=== PATIENT | male | born 1990 | race Caucasian/White ===

== ENCOUNTER 2022-03-17 12:11 | Inpatient (IN) | payer OTHER, SELFPAY ==
[2022-03-17] VITALS (7 sets, daily range): BP systolic 124–174; BP diastolic 76–99; PULSE 91–111; RESP 18–29; TEMP 36.7–37; O2SAT 96–100; BMI 50.2; BMI 52.7
--- NOTE | 2022-03-17 | ECG_ITS ---
Test Reason : tachy Blood Pressure : / mmHG Vent. Rate : 105 BPM Atrial Rate : 105 BPM P-R Int : 176 ms QRS Dur : 092 ms QT Int : 302 ms P-R-T Axes : 069 091 026 degrees QTc Int : 399 ms Sinus tachycardia Possible Left atrial enlargement Rightward axis Nonspecific T wave abnormality Abnormal ECG No previous ECGs available Referred By: Fatoumata Stewart Electronically Signed By:ANDREW LINDSAY MD
--- NOTE | ~2022-03-17 | XR_ITS ---
EXAMINATION: XR CHEST CLINICAL INFORMATION: Dyspnea COMPARISON: None TECHNIQUE: Frontal view of the chest was obtained. FINDINGS: The cardiac silhouette is enlarged. Hilar and mediastinal contours are normal. The lungs are clear. There is no pleural effusion or pneumothorax. Bony structures are unremarkable. XR/XR chest 1V IMPRESSION: Enlarged cardiac silhouette.
--- NOTE | ~2022-03-17 | US_ITS ---
EXAMINATION: US VENOUS ULTRASOUND WITH DOPPLER LOWER EXTREMITY, LEFT CLINICAL INFORMATION: Left lower extremity redness and pain COMPARISON: None TECHNIQUE: Ultrasound of the deep veins is performed from the hip to the calf with compression sonography and color and pulse Doppler assessment. Spectral analysis with color-flow imaging is performed. FINDINGS: There is normal venous compression and respiratory variation and augmented flow. The visualized common femoral vein, superficial femoral vein, profunda femoral vein, popliteal vein, and the trifurcation region shows no evidence of deep venous thrombosis. Limited views of the peroneal veins secondary to body habitus. There is no significant popliteal fossa cyst. Multiple prominent groin lymph nodes are seen. If the patient's symptoms persist, followup ultrasound in 5 days 7 days might be of value to exclude proximal propagation from a non-visualized calf vein. US/US venous duplex LE IMPRESSION: No DVT demonstrated in the left lower extremity.
[2022-03-17 12:57] LABS: Hematocrit 44.2 % (42.0-52.0); Hemoglobin 13.9 g/dl (14.0-18.0); Mean Corpuscular HGB Conc 31.4 g/dl (31.0-36.0); Mean Corpuscular Hemoglobin 29.8 pg (27.0-33.0); Mean Corpuscular Volume 94.6 fL (80.0-98.0); Mean Platelet Volume 9.1 fL (9.4-12.4); Platelet Count 214 X10*3/uL (160-400); Red Blood Count 4.67 X10*6/uL (4.60-5.80); Red Cell Distribution Width 13.8 % (11.0-16.0); White Blood Count 12.5 X10*3/uL (4.8-10.8)
[2022-03-17 13:12] LABS: COVID-19 Test Negative (Negative); IDNOW Serial# 16C4AD1C
--- NOTE | 2022-03-17 13:15 | ED_ITS ---
HPI - General Adult General Chief complaint: Skin/Abscess/Foreign Body Stated complaint: r leg turning purple Time Seen by Provider: 03/17/22 13:12 Source: patient Mode of arrival: ambulatory Limitations: no limitations History of Present Illness HPI narrative: 31-year-old male with a past medical history of asthma and obesity who has not seen a primary care provider for some time, presents for left leg cellulitis that started yesterday. Patient states that he rolled his leg walking down stairs 5 days ago. He states that sometimes this happens to his left knee. States that yesterday he had a small 2 in x 2 in patch of redness on his left lower extremity, but today it is painful, warm, swollen, and much redder. Patient has had subjective fevers and has had hot and cold chills at home. Three weeks ago patient was out for 2 weeks for an ankle sprain on his right ankle. He went back to work last week. Patient has a family history of diabetes. Patient states he has been referred for sleep apnea evaluation, but has not been evaluated for that yet. Related Data Home Medications Medication Instructions Recorded Confirmed No Known Home Meds 03/17/22 03/17/22 Allergies Allergy/AdvReac Type Severity Reaction Status Date / Time acetaminophen [From VICODIN] Allergy Unknown HIVES Unverified 06/13/20 15:54 tramadol [TRAMADOL] Allergy Unknown HIVES Unverified 06/13/20 15:54 VOMITING From FLEXERIL Allergy Unknown HIVES Uncoded 06/13/20 15:54 From VICODIN Allergy Unknown HIVES Uncoded 06/13/20 15:54 IVORY SOAP Allergy Unknown Uncoded 06/13/20 15:54 Review of Systems Constitutional: Constitutional: Reports body ache(s), Reports chills, Denies fatigue, Denies fever(s), Denies malaise and Denies weakness Eyes: Eyes: Denies diplopia Cardiovascular: Cardiovascular: Denies chest pain, Denies syncope, Reports leg edema, Denies lightheadedness, Denies Loss of Consciousness, Denies palpitations and Denies dyspnea Respiratory: Respiratory: Denies chest congestion, Denies cough and Denies dyspnea Gastrointestinal: Gastrointestinal: Denies abdominal pain, Denies hematochezia, Denies constipation, Denies diarrhea, Denies nausea and Denies vomiting Genitourinary: Genitourinary: Reports no additional male genitourinary complaints Musculoskeletal: Musculoskeletal: Denies muscle weakness, Denies numbness, Reports radiating pain into limb and Denies tingling Integumentary/Breasts: Skin/Breast: Reports swelling, Reports erythema and Reports rash Neurologic: Denies confusion, Denies syncope, Denies numbness, Denies tingling and Denies weakness Psychiatric: Psychiatric: Denies anxiety, Denies confusion and Denies d epression Endocrine: Endocrine: Denies fatigue and Denies palpitations PMF Past Medical History Medical History Mild intermittent asthma Morbid obesity Family History Family History Other Diabetes Social History Social History Advance Directives: No Advance Directives Information Provided: Yes Physical Exam ED Vital Signs: Vital Signs - 24 hr 03/17/22 12:25 Temperature 98.6 F Pulse Rate 102 H Respiratory Rate 18 Blood Pressure 132/76 Pulse Oximetry 97 Oxygen Delivery Method Room Air BMI result Body Mass Index 50.2 Const General: No confusion Nutritional Appearance: well nourished Orientation/consciousness: No confusion Limitations: no limitations Eyes Conjunctivae: conjunctivae normal Pupils: Equal, round and reactive pupils present EOM: EOMs intact bilaterally Neck Neck: Yes full ROM, Yes no lymphadenopathy and Yes supple Resp Effort & Inspection: normal respiratory effort and able to speak in complete sentences Auscultation: clear to auscultation bilaterally, no crackles, no rales, no rhonchi and no wheezes Cardio Rate: regular rate Rhythm: regular rhythm Heart sounds: S1 normal heart sound present and S2 normal heart sound present GI Inspection: Yes normal to inspection Palpation (GI): Soft to palpation, nontender, no guarding and not rigid Percussion: Yes normal to percussion Auscultation: normal bowel sounds Skin Other: Swelling, redness, warmth, edema to left lower extremity Neuro General: No confusion Cranial nerves: Yes Equal, round and reactive pupils present Extrem Left lower extremity: full ROM, normal capillary refill, edema Details: pitting and 2+ and lower leg Details: erythema, tenderness, pitting edema Details: 2+ and warmth Location: of the proximal lower leg, of the mid lower leg and of the distal lower leg; no crepitus Psych Appearance: grossly normal Affect: normal affect Attitude: cooperative Thought process: Normal thought process present Course Course Course Narrative: 31-year-old male with past medical history of asthma and obesity, presents for red, swollen, painful left calf. Patient has dark red rash on left calf. States rash became suddenly worse today, and that it started yesterday. No trauma. Patient did sprain his right ankle 1 month ago, and may have had reduced ambulation due to this. On exam, patient has intact left lower extremity pulses, sensation, motor strength, and reflexes. Patient has red, swollen with +2 pitting edema, left calf. Left posterior calf is tender to palpate. Left posterior calf is warm Afebrile, mildly tachycardic at HR 102 patient has an elevated white blood cell count of 12.5, blood sugar 234. COVID negative. DVT study is negative. Patient is afebrile here, but states subjective fevers and chills at home Dr Kaur saw patient, and agrees he needs admission. Reevaluation(s) Reevaluation #1: FINDINGS: There is normal venous compression and respiratory variation and augmented flow. The visualized common femoral vein, superficial femoral vein, profunda femoral vein, popliteal vein, and the trifurcation region shows no evidence of deep venous thrombosis. Limited views of the peroneal veins secondary to body habitus. There is no significant popliteal fossa cyst. Multiple prominent groin lymph nodes are seen. If the patient's symptoms persist, followup ultrasound in 5 days 7 days might be of value to exclude proximal propagation from a non-visualized calf vein. US/US venous duplex LE LT IMPRESSION: No DVT demonstrated in the left lower extremity. Medical Decision Making Lab Data Result diagrams: 03/17/22 12:49 03/17/22 12:49 Labs: Lab Results 03/17/22 03/17/22 03/17/22 Range/Units 12:49 12:49 12:49 WBC 12.5 H (4.8-10.8) X10*3/uL RBC 4.67 (4.60-5.80) X10*6/uL Hgb 13.9 L (14.0-18.0) g/dl Hct 44.2 (42.0-52.0) % MCV 94.6 (80.0-98.0) fL MCH 29.8 (27.0-33.0) pg MCHC 31.4 (31.0-36.0) g/dl RDW 13.8 (11.0-16.0) % Plt Count 214 (160-400) X10*3/uL MPV 9.1 L (9.4-12.4) fL Absolute Nucleated RBC 0.000 (0.0-0.012) X10*3/uL Nucleated RBC % (auto) 0.0 (0.0-0.2) /100WBC Sodium 137 (135-145) mmol/L Potassium 4.3 (3.3-5.1) mmol/L Chloride 100 (96-108) mmol/L Carbon Dioxide 27 (22-29) mmol/L Anion Gap 14 (12-20) BUN 10 (9-16) mg/dL Creatinine 0.84 (0.5-1.4) mg/dL Estim Creat Clear Calc 185.9 Estimated GFR > 60 Random Glucose 234 H (60-115) mg/dL Lactic Acid (0.5-2.0) mmol/L Calcium 8.8 (8.4-10.2) mg/dL C-Reactive Protein 16.68 H (< or = 0.50) mg/dL COVID-19 (EVELINA) Negative (Negative) COVID-19 Clin Com See Note 03/17/22 Range/Units 15:30 WBC (4.8-10.8) X10*3/uL RBC (4.60-5.80) X10*6/uL Hgb (14.0-18.0) g/dl Hct (42.0-52.0) % MCV (80.0-98.0) fL MCH (27.0-33.0) pg MCHC (31.0-36.0) g/dl RDW (11.0-16.0) % Plt Count (160-400) X10*3/uL MPV (9.4-12.4) fL Absolute Nucleated RBC (0.0-0.012) X10*3/uL Nucleated RBC % (auto) (0.0-0.2) /100WBC Sodium (135-145) mmol/L Potassium (3.3-5.1) mmol/L Chloride (96-108) mmol/L Carbon Dioxide (22-29) mmol/L Anion Gap (12-20) BUN (9-16) mg/dL Creatinine (0.5-1.4) mg/dL Estim Creat Clear Calc Estimated GFR Random Glucose (60-115) mg/dL Lactic Acid 1.0 (0.5-2.0) mmol/L Calcium (8.4-10.2) mg/dL C-Reactive Protein (< or = 0.50) mg/dL COVID-19 (EVELINA) (Negative) COVID-19 Clin Com Discharge Plan Discharge Clinical Impression: Cellulitis, Hyperglycemia Patient Disposition: Admitted As Inpatient
[2022-03-17 13:24] LABS: Anion Gap 14 (12-20); Blood Urea Nitrogen 10 mg/dL (9-16); Calcium 8.8 mg/dL (8.4-10.2); Carbon Dioxide 27 mmol/L (22-29); Chloride 100 mmol/L (96-108); Creatinine Clr Calc Pharmacy 185.9; Estimated Glomerular Filt Rate > 60; Glucose Random 234 mg/dL (60-115); Potassium 4.3 mmol/L (3.3-5.1); Sodium 137 mmol/L (135-145)
--- NOTE | 2022-03-17 15:49 | P.HPHOSP_ITS ---
History of Present Illness Date of Service: 03/17/22 Chief Complaint: leg redness/swelling/pain 31yo M with PMHx of asthma and morbid obesity but no other diagnosed chronic medical conditions, though he has not seen a primary care doctor in years. He has previously been referred for evaluation for MALDONADO but never had a PSG. He presents 1 day after developing rapidly spreading redness, discoloration, swelling, and pain of his left leg involving the entire almazan and calf. He had a fever to 101 and chills and decided to come in to the ED. Five days ago, he tripped walking down some stairs when his right knee gave out. No purulent drainage from the leg. No nausea or vomiting. In the ED, he was noted to septic with leukocytosis and tachycardia. Lactic acid was 1. Random blood glucose 234. He was given 1 dose of cefazolin. Review of Systems Review of Systems: Yes all other systems are reviewed and are negative [facility] Medical History Mild intermittent asthma Morbid obesity Family History Other Diabetes Social History Advance Directives: No Advance Directives Information Provided: Yes Narrative: smokes 1/2 ppd Meds Allergies Allergy/AdvReac Type Severity Reaction Status Date / Time acetaminophen [From VICODIN] Allergy Unknown HIVES Unverified 06/13/20 15:54 tramadol [TRAMADOL] Allergy Unknown HIVES Unverified 06/13/20 15:54 VOMITING From FLEXERIL Allergy Unknown HIVES Uncoded 06/13/20 15:54 From VICODIN Allergy Unknown HIVES Uncoded 06/13/20 15:54 IVORY SOAP Allergy Unknown Uncoded 06/13/20 15:54 Active Medications: Current Medications Acetaminophen (Acetaminophen 325 Mg Tablet) 650 mg PO Q6H PRN PRN Reason: Pain, Mild (Pain Scale 1-3) Albuterol Sulfate (Albuterol Sulfate 90 Mcg 8 Gm Inhaler) 2 puff INHALE RQ4H PRN PRN Reason: shortness of breath Dextrose (Dextrose 50 % 25 Gm/50 Ml Syringe) 25 gm IVPUSH Q15M PRN; Protocol PRN Reason: per Hypoglycemia Standing Ord. Enoxaparin Sodium (Enoxaparin Sodium 40 Mg/0.4 Ml Syringe) 40 mg SUBCUT Q24H JOHN Glucose (Glucose Gel 15 Gm Gel..Gram.) 15 gm PO Q15M PRN; Protocol PRN Reason: per Hypoglycemia Standing Ord. Sodium Chloride (Ns) 1,000 mls @ 999 mls/hr IV .Q1H1M JOHN Stop: 03/17/22 16:15 Cefazolin Sodium 1 gm/ Sodium (Chloride) 50 mls @ 100 mls/hr IV Q8H [facility] Clindamycin Phosphate (Cleocin) 600 mg in 50 mls @ 100 mls/hr IV Q8H [facility] Insulin Human Lispro (Insulin Lispro 100 Unit/Ml 3 Ml Vial) 0 unit SUBCUT QIDACHS [facility]; Protocol Ondansetron HCl (Ondansetron Hcl 4 Mg/2 Ml Vial) 4 mg IVPUSH Q8H PRN PRN Reason: Nausea and Vomiting Sodium Chloride (0.9 % Sodium Chloride Flush 3 Ml Syringe) 3 ml IVFLUSH QSHIFT [facility] Home Medications Medication Instructions Recorded Confirmed Last Taken Type No Known Home Meds 03/17/22 03/17/22 Unknown History Physical Exam Vital Signs and Narrative: Vital Signs: Last Vital Signs Temp 98.6 F 03/17/22 12:25 Pulse 102 H 03/17/22 12:25 Resp 18 03/17/22 12:25 BP 132/76 03/17/22 12:25 Pulse Ox 97 03/17/22 12:25 O2 Del Method 03/17/22 12:25 BMI result Body Mass Index 50.2 Gen: in no acute distress HEENT: sclera anicteric, moist mucus membranes Neck: supple Lungs: clear to auscultation bilaterally Heart: regular rate and rhythm, no murmurs Abd: soft, non-tender, non-distended, morbidly obese Ext: extensive well-demarcated erythema, induration, and warmth involving the right almazan and calf as shown in the below photo. no fluctuant collections of fluid. Skin: warm/well-perfused Neuro: alert and oriented x3, no focal findings Psych: appropriate affect Results Labs CBC and Chem 7: 03/17/22 12:49 03/17/22 12:49 Labs: Laboratory Results - last 24 hr 06/03/17/22 03/17/22 12:49 12:49 12:49 MCV 94.6 MCH 29.8 MCHC 31.4 RDW 13.8 Plt Count 214 MPV 9.1 L Absolute Nucleated RBC 0.000 Nucleated RBC % (auto) 0.0 Anion Gap 14 Estim Creat Clear Calc 185.9 Estimated GFR > 60 Random Glucose 234 H Calcium 8.8 COVID-19 (EVELINA) Negative COVID-19 Clin Com See Note Imaging Radiologist's Impressions: Impressions Venous Duplex 03/17/22 13:53 IMPRESSION: No DVT demonstrated in the left lower extremity. Assessment and Plan (1) Cellulitis: Status: Acute Plan 31yo M with morbid obesity, intermittent asthma, possible MALDONADO presenting with 1d of rapidly progressive erythema, induration, and warmth of the RLE and found to be septic due to cellultiis/erysipelas # cellulitis/erysipelas - admit to M/S, give cefazolin to cover MSSA + Strep, also give clindamycin given likely toxin-mediated disease, follow BCx. # hyperglycemia - check A1c + POC glucose # mild intermittent asthma - prn albuterol HFA # morbid obesity - will need outpt Bariatric and Sleep Medicine evaluations # VTE ppx: LMWH # code: full VTE prophylaxis: code status: I anticipate that the patient will stay at least 2 midnights in hospital due to the above reasons. It is neither reasonable nor safe to care for them in a less acute setting. Quality Stroke Does the patient have a stroke diagnosis?: No VTE Prior VTE?: No VTE Risk Level:: Medical - moderate - high VTE Device Contraindication: N/A - Device Ordered VTE Drug Contraindication: N/A - Med Ordered
[2022-03-17 16:00] LABS: C Reactive Protein 16.68 mg/dL (< or = 0.50)
[2022-03-17] MEDS: 0.9 % Sodium Chloride 1,000 ML 999 ML IV (16:01)
[2022-03-17] MEDS: ceFAZolin Sodium/Dextrose,Iso 2 GM/50 ML PIGGYBACK IV (16:01)
--- NOTE | 2022-03-17 16:04 | PC.NURSE ---
PT SNORING, SLEEPING, AWOKEN AFTER STERNAL RUB, PT STATES HE IS NOT DIAGNOSED WITH SLEEP APNEA BUT WAS SUPPOSED TO HAVE A TEST DONE FOR THAT. LEFT LOWER LEG DARK PINK/PURPLE FROM FOOT UP TO KNEE. PEDAL PULSE FAINT ON PALPATION, SKIN IS WARM TO TOUCH.
[2022-03-17 17:12] LABS: Glucose, Whole Blood 180 mg/dL (60-115)
--- NOTE | 2022-03-17 17:15 | PM.CNGS ---
History of Present Illness Consult details Consult date: 03/17/22 Narrative: 31M with morbid obesity, who came to the ED today because of left lower leg redness and pain. He says that yesterday morning, he had noticed a reddish area on the medial aspect of the calf. He says this had been spreading since then. He describes pain on the entire lower leg. He states that he felt some chills at home as well. He denies any trauma to the lower leg although he says he had tripped and fallen about 5 days ago. He denies any scratches or open wounds. He has not seen any PCP for a long time but is aware he has sleep apnea. He says he was never told he had DM. Review of Systems Constitutional: Constitutional: Reports chills and Denies fever(s) Cardiovascular: Cardiovascular: Denies chest pain, Denies dyspnea and Denies dyspnea on exertion Respiratory: Respiratory: Denies cough, Denies dyspnea and Denies dyspnea on exertion Gastrointestinal: Gastrointestinal: Denies hematochezia and Denies change in bowel habits Genitourinary: Genitourinary: Denies hematuria and Denies difficulty urinating Musculoskeletal: Musculoskeletal: Denies back pain and Denies limited range of motion Neurologic: Denies focal weakness and Denies convulsions Psychiatric: Psychiatric: Denies depression and Denies mood swings PMFSH Past Medical History Medical History Mild intermittent asthma Morbid obesity Family History Family History Other Diabetes Social History Social History Household Members: Family Housing: House Do you presently have visiting nurse or other home services: No Patient Tobacco Use Status: Current everyday Tobacco user Tobacco use type: Cigarette service: No Meds Allergies Allergy/AdvReac Type Severity Reaction Status Date / Time acetaminophen [From VICODIN] Allergy Unknown HIVES Verified 03/17/22 17:55 tramadol [TRAMADOL] Allergy Unknown HIVES Verified 03/17/22 17:55 VOMITING From FLEXERIL Allergy Unknown HIVES Uncoded 06/13/20 15:54 From VICODIN Allergy Unknown HIVES Uncoded 06/13/20 15:54 IVORY SOAP Allergy Unknown Hives Uncoded 03/17/22 17:55 Active Medications: Current Medications Acetaminophen (Acetaminophen 325 Mg Tablet) 650 mg PO Q6H PRN PRN Reason: Pain, Mild (Pain Scale 1-3) Albuterol Sulfate (Albuterol Sulfate 90 Mcg 8 Gm Inhaler) 2 puff INHALE RQ4H PRN PRN Reason: shortness of breath Albuterol/Ipratropium (Albuterol/Iprat 2.5/0.5mg 3 Ml Ampul.Neb) 3 ml INHALE RQ4H PRN PRN Reason: shortness of breath/wheeze Dextrose (Dextrose 50 % 25 Gm/50 Ml Syringe) 25 gm IVPUSH Q15M PRN; Protocol PRN Reason: per Hypoglycemia Standing Ord. Enoxaparin Sodium (Enoxaparin Sodium 40 Mg/0.4 Ml Syringe) 40 mg SUBCUT Q24H [facility] Glucose (Glucose Gel 15 Gm Gel..Gram.) 15 gm PO Q15M PRN; Protocol PRN Reason: per Hypoglycemia Standing Ord. Cefazolin Sodium 1 gm/ Sodium (Chloride) 50 mls @ 100 mls/hr IV Q8H [facility] Clindamycin Phosphate (Cleocin) 600 mg in 50 mls @ 100 mls/hr IV Q8H [facility] Vancomycin HCl 2,000 mg/ (Sodium Chloride) 540 mls @ 270 mls/hr IV ONCE ONE Stop: 03/17/22 19:11 Insulin Human Lispro (Insulin Lispro 100 Unit/Ml 3 Ml Vial) 0 unit SUBCUT QIDACHS [facility]; Protocol Ondansetron HCl (Ondansetron Hcl 4 Mg/2 Ml Vial) 4 mg IVPUSH Q8H PRN PRN Reason: Nausea and Vomiting Pharmacy Consult (Consult Rx Vancomycin Dosing) 1 each MISCELLANE DAILY STA Stop: 03/17/22 16:53 Sodium Chloride (0.9 % Sodium Chloride Flush 3 Ml Syringe) 3 ml IVFLUSH QSHIFT [facility] Home Medications Medication Instructions Recorded Confirmed Last Taken Type No Known Home Meds 03/17/22 03/17/22 Unknown History Physical Exam Vital Signs: Vital Signs: Last Vital Signs Temp 98.6 F 03/17/22 12:25 Pulse 111 H 03/17/22 16:49 Resp 28 H 03/17/22 16:49 BP 133/79 03/17/22 16:49 Pulse Ox 99 03/17/22 16:49 O2 Del Method 03/17/22 16:49 O2 Flow Rate 4 03/17/22 16:49 BMI result Body Mass Index 52.7 Const: Other: morbidly obese General: comfortable and no acute distress Orientation/consciousness: patient oriented x3 Neck: Neck: Yes no lymphadenopathy Resp: Auscultation: clear to auscultation bilaterally Cardio: Rhythm: regular rhythm GI: Palpation (GI): Soft to palpation, nontender and no guarding Neuro: General: patient oriented x3 Extrem: Other: left lower leg - diffuse redness, anterior, lateral and medial skin, soft, not tense compared to opposite leg, tender diffusely, no open wound, no skin breakdown, no area of induration; Results Labs Result diagrams: 03/23/22 05:41 03/23/22 05:41 Labs: Abnormal lab results 03/17/22 03/17/22 03/17/22 Range/Units 12:49 12:49 17:07 WBC 12.5 H (4.8-10.8) X10*3/uL Hgb 13.9 L (14.0-18.0) g/dl MPV 9.1 L (9.4-12.4) fL POC Glucose 180 H (60-115) mg/dL Random Glucose 234 H (60-115) mg/dL C-Reactive Protein 16.68 H (< or = 0.50) mg/dL Short CBC 03/17/22 Range/Units 12:49 WBC 12.5 H (4.8-10.8) X10*3/uL Hgb 13.9 L (14.0-18.0) g/dl Hct 44.2 (42.0-52.0) % Plt Count 214 (160-400) X10*3/uL BMP 03/17/22 12:49 Sodium 137 Potassium 4.3 Chloride 100 Carbon Dioxide 27 BUN 10 Creatinine 0.84 Calcium 8.8 All other labs normal. Imaging Additional studies: Laboratory Results WBC 12.5 X10*3/uL (4.8-10.8) H 03/17/22 12:49 RBC 4.67 X10*6/uL (4.60-5.80) 03/17/22 12:49 Hgb 13.9 g/dl (14.0-18.0) L 03/17/22 12:49 Hct 44.2 % (42.0-52.0) 03/17/22 12:49 MCV 94.6 fL (80.0-98.0) 03/17/22 12:49 MCH 29.8 pg (27.0-33.0) 03/17/22 12:49 MCHC 31.4 g/dl (31.0-36.0) 03/17/22 12:49 RDW 13.8 % (11.0-16.0) 03/17/22 12:49 Plt Count 214 X10*3/uL (160-400) 03/17/22 12:49 MPV 9.1 fL (9.4-12.4) L 03/17/22 12:49 Absolute Nucleated RBC 0.000 X10*3/uL (0.0-0.012) 03/17/22 12:49 Nucleated RBC % (auto) 0.0 /100WBC (0.0-0.2) 03/17/22 12:49 Sodium 137 mmol/L (135-145) 03/17/22 12:49 Potassium 4.3 mmol/L (3.3-5.1) 03/17/22 12:49 Chloride 100 mmol/L (96-108) 03/17/22 12:49 Carbon Dioxide 27 mmol/L (22-29) 03/17/22 12:49 Anion Gap 14 (12-20) 03/17/22 12:49 BUN 10 mg/dL (9-16) 03/17/22 12:49 Creatinine 0.84 mg/dL (0.5-1.4) 03/17/22 12:49 Estim Creat Clear Calc 185.9 03/17/22 12:49 Estimated GFR > 60 03/17/22 12:49 POC Glucose 180 mg/dL (60-115) H 03/17/22 17:07 Random Glucose 234 mg/dL (60-115) H 03/17/22 12:49 Lactic Acid 1.0 mmol/L (0.5-2.0) 03/17/22 15:30 Calcium 8.8 mg/dL (8.4-10.2) 03/17/22 12:49 C-Reactive Protein 16.68 mg/dL (< or = 0.50) H 03/17/22 12:49 COVID-19 ([facility]) Negative (Negative) 03/17/22 12:49 COVID-19 Clin Com See Note 03/17/22 12:49 Impressions Venous Duplex 03/17/22 13:53 IMPRESSION: No DVT demonstrated in the left lower extremity. Assessment and Plan (1) Cellulitis: Status: Acute He has diffuse redness of the left leg c/w cellulitis.He clinically has sepsis, with tachycardia, elevated WBC, but his lactate is low. Examination does not suggest a necrotizing process at this time. The leg is soft as well and appears well vascularized , There is no area of fluctuance or induration. He does not appear to require surgical intervention. There is no DVT on Doppler US. I agree with aggressive IV abx tx especially for gm positive bacteria. His entire lower leg should be elevated on 2 pillows. I mary jane monitor closely and follow along while he is in the hospital. I have discussed the above with the hospitalist. Procedures Date of Service Date of Service: 03/17/22
--- NOTE | 2022-03-17 17:24 | PHA.PROG ---
Admission Date/Time: March 17, 2022 15:47 Indication: skin/skin structure Weight in k kg Adjusted body weight in K.2 [place] body weight in K.7 Obesity Dosing Indication % IBW: Serum Creatinine - Last 168 Hours 03/17/22 12:49 Creatinine 0.84 Estimated CrCl and GFR - Last 168 Hours 03/17/22 12:49 Estim Creat Clear Calc 185.9 Estimated GFR > 60 Vancomycin Loading Dose: 2000 mg x 1 Current Vancomycin Dosing Regimen: 1250 mg q12h Vancomycin Monitoring using AUC goal of 400 - 600 range with trough as surrogate marker: predicted auc of 555 Date and Time for next Vancomycin Level to be drawn: 03/18/22 @1500 Pharmacist Comments on Vancomycin Plan: obese model used. verified wt with RN Vancomycin dosing will take advantage of [employer] as a clinical decision support tool that uses Bayesian modeling to calculate individual patient's pharmacokinetic parameters and forecast the patient's drug concentration time course with the target goal AUC 24 range of 400 - 600 mg/L/hr.
[2022-03-17 17:54] LABS: Estimated Average Glucose 163 mg/dL; Hemoglobin A1c % 7.3 %
[2022-03-17] MEDS: Enoxaparin Sodium 40 MG/0.4 ML SYRINGE SUBCUT (17:56)
[2022-03-17] MEDS: Clindamycin Phosphate/D5W 600 MG/50 ML PIGGYBACK 100 MG IV (17:56)
[2022-03-17] MEDS: Insulin Lispro 100 UNIT/ML 3 ML VIAL SUBCUT ×2 (17:57→21:35)
[2022-03-17] MEDS: 0.9 % Sodium Chloride Flush 3 ML SYRINGE IVFLUSH (17:57)
[2022-03-17 20:52] LABS: Glucose, Whole Blood 179 mg/dL (60-115)
[2022-03-18] VITALS (8 sets, daily range): BP systolic 136–170; BP diastolic 69–83; PULSE 86–110; RESP 18–22; TEMP 36.3–37.3; O2SAT 85–97
[2022-03-18] MEDS: 0.9 % Sodium Chloride Flush 3 ML SYRINGE IVFLUSH (00:06)
[2022-03-18] MEDS: Ketorolac Tromethamine 15 MG/ML VIAL IVPUSH ×2 (00:25→16:21)
[2022-03-18] MEDS: Clindamycin Phosphate/D5W 600 MG/50 ML PIGGYBACK 100 MG IV ×3 (00:45→16:21)
[2022-03-18] MEDS: Nicotine 14 MG PATCH.TD24 TRANSDERMA ×2 (01:23→10:48)
--- NOTE | 2022-03-18 02:50 | PM.EVENT ---
Event Note Date of Service: 03/18/22 Event Note: Sinus pause: Patient had an episode of sinus pause up to 7 seconds. Patient is symptomatic. Pacer pads Cardiology follow-up
[2022-03-18 02:55] LABS: ABG Refer to POC result
--- NOTE | 2022-03-18 03:01 | PC.NURSE ---
Pt having episodes of bradycardia in 30s when sleeping, ? complete heart block at times and sinus pauses up to 7 seconds. Pt asymptomatic when awake. Pacer pads placed on pt. Dr Barcenas aware, cardio consult placed. Sleep study stopped due to pts spO2 70s. Pt placed back on 4L NC. Respiratory at bedside, ABGs drawn.
[2022-03-18 03:15] LABS: ABG Base Excess 8.6 mmol/L; ABG HCO3 37 mmol/L (22-26); ABG pH 7.32 (7.35-7.45); ABG pO2 81 mmHg (83-108)
[2022-03-18 03:16] LABS: ABG pCO2 72 mmHg (32-45)
[2022-03-18] MEDS: vancomycin HCL 1,250 MG in 0.9 % Sodium Chloride 250 ML 166.67 MG IV ×2 (04:20→17:01)
--- NOTE | 2022-03-18 07:00 | CA_ITS ---
Transthoracic Echocardiogram Patient (Last, First, Middle): Marquis Vang T Gender: Male Date of : 1990 Age: 31 Procedure Date: 03/18/2022 Procedure Type: Transthoracic [place] [facility] [place]: 175.26 cm Weight: 161.94 kg BSA: 2.64 m2 Heart Rate: 94 bpm Talent Acquisition Associate: IFEOMA Referring MD: Catherine Duarte MD Sales Audit Clerk: Rajendra Vega MD Symptoms: sinus pause, Steve Study Quality: Technically Difficult/BSA/Contrast ECG Rhythm: Sinus Conclusions: - 1. Technically extremely limited study due to body habitus 2. Normal LV systolic function with possible pseudonormal filling pattern 3. Limited visualization of cardiac valves with no significant abnormalities. 4. RV systolic pressure could not be measured on this study Findings Procedure Information Contrast agent, definity, is being given per protocol without apparent complications. Left Ventricle Normal left ventricular size, thickness, and systolic function. The visually estimated ejection fraction is between 60-65%. There is a flattened septum in systole consistent with right ventricular pressure overload. Spectral Doppler is indicative of a pseudonormal filling pattern. Right Ventricle The right ventricle was not well visualized. Atria The left atrium was not well visualized. Interatrial shunt cannot be excluded. The right atrium was not well visualized. Aortic Valve The aortic valve was not well visualized. There is no aortic valve stenosis. Mitral Valve The mitral valve was not well visualized. There is no mitral valve stenosis. Pulmonic Valve The pulmonic valve was not well visualized. Tricuspid Valve The tricuspid valve was not well visualized. Tricuspid regurgitation envelope is inadequate for calculation of right ventricular systolic pressure. Great Vessels The aorta was not well visualized. The pulmonary artery was not well visualized. Venous The inferior vena cava was not well visualized. Pericardium/Pleural The pericardium was not well visualized. Prior Study Comparison No prior study available for comparison. Measurements 2D Linear Measurements IVSd: 0.97 0.6-0.9/0.6-1.0 cm LVIDd: 5.41 3.9-5.3/4.2-5.9 cm LVIDd Index: 2.05 2.4-3.2/2.2-3.1 cm/m2 LVIDs: 3.67 2.0-3.6 cm LVPWd: 0.91 0.7-1.1 cm LA Diam: 4.00 2.7-3.8/3.0-4.0 cm LAIDs Index: 1.52 1.5-2.3 cm/m2 LV Mass: 237.25 67-162/88-224 g LV Mass Index: 89.87 43-95/49-115 g/m2 LVOT Diam: 2.50 3.0+(-)1.3 cm 2D Systolic Function EF 4C: 62.80 >55% EF 2C: 61.00 >55% EF BiP: 60.60 >55% Mitral Valve MV Pk E: 1.04 MV PK A: 0.66 MV Decel Time: 170.00 E/A: 1.60 E'Lateral: 14.20 E'Medial: 13.80 E/E' Med: 7.50 E/E' Lat: 7.30 PHT: 50.00 MVA PHT: 4.40 Decel Evangeline: 6.12 Aortic Valve AoV Pk Daniel: 1.65 AoV Mn Daniel: 1.17 AoV VTI: 0.28 AoV Pk Grad: 11.00 Aov Mn Grad: 6.00 MAYRA Cont.VTI: 2.89 LVOT LVOT Pk Daniel: 0.97 LVOT Mn Daniel: 0.72 LVOT VTI: 0.17 LVOT Pk Grad: 4.00 LVOT Mn Grad: 2.00 LVOT Diam: 2.50 LVOT Area: 4.91 Diastolic Function MV Pk E: 1.04 MV Pk A: 0.66 E/A: 1.60 E'Medial: 13.80 E/E' Med: 7.50 E' Laterial: 14.20 E/E' Lat: 7.30 Great Vessels Aorta Sinus of Valsalva: 2.70 2.0-3.[address] Ridge: 2.52 1.7-3.4 cm Ao Asc: 2.50 2.1-3.4 cm Pulmonary Valve PV Pk Daniel: 1.15 Peak PV Grad: 5.00 Updated in Other Vendor System with Status of Final Rajendra Vega MD electronically signed on 03/18/2022 3:10:58 PM with status of Final
[2022-03-18 07:18] LABS: Glucose, Whole Blood 160 mg/dL (60-115)
[2022-03-18 07:37] LABS: Hematocrit 43.5 % (42.0-52.0); Mean Corpuscular HGB Conc 29.9 g/dl (31.0-36.0); Mean Corpuscular Hemoglobin 28.9 pg (27.0-33.0); Mean Corpuscular Volume 96.7 fL (80.0-98.0); Mean Platelet Volume 9.5 fL (9.4-12.4); Platelet Count 207 X10*3/uL (160-400); Red Cell Distribution Width 14.1 % (11.0-16.0); White Blood Count 11.9 X10*3/uL (4.8-10.8)
[2022-03-18 07:48] LABS: Anion Gap 13 (12-20); Blood Urea Nitrogen 12 mg/dL (9-16); Calcium 8.9 mg/dL (8.4-10.2); Carbon Dioxide 33 mmol/L (22-29); Chloride 98 mmol/L (96-108); Creatinine Clr Calc Pharmacy 203.5; Estimated Glomerular Filt Rate > 60; Glucose Random 186 mg/dL (60-115); Sodium 139 mmol/L (135-145)
--- NOTE | 2022-03-18 09:01 | P.CONPL_ITS ---
History of Present Illness History of Present Illness Consult date: 03/18/22 Requesting physician: Catherine Duarte Reason for consult: hypoxemia and other (maldonado, resp.failure) Chief complaint: Sepsis,cellulitis Narrative: I have says seen this patient this morning, for pulmonary and sleep consult. He is admitted with fulminant cellulitis of the left leg, on top of chronic stasis edema of both legs. He is being treated appropriately with IV antibiotics. He is found to be morbidly obese, and is interviewed about symptoms of chronic sleep apnea. This gentleman has not seen any primary care physician for the last 2 years, he say is he has been trying to see someone but could not, find a PCP. He is aware of the fact that he probably does have sleep apnea. He is a hard core snorer. Wakes up every hour or so with gasping like feeling, goes back to sleep only to wake up again with an on our. Thus his sleep is very fragmented. He remains on refreshed, fatigued and sleepy during the daytime, His activity level has been mainly sitting, and taking brief naps during the daytime. I interviewed him about daytime sleepiness, he falls asleep at in appropriate occasions. EPWORTH SLEEPINESS SCALE IS AROUND 18-[address], never had driving license, and is not working for the last 3 years or so. He was seen once at [facility] in [place], was told that he needs the his sleep study but it was never followed through. This gentleman also has been a smoker, at least 1 pack a day for more than 20 years. Currently cut down to half pack a day. He has longstanding history of intermittent bronchial asthma. And uses albuterol p.r.n.. He has had no pulmonary evaluation, and may even have developed COPD. Review of Systems Review of Systems: Yes all other systems are reviewed and are negative Constitutional: Constitutional: Reports snoring Eyes: Eyes: Reports no additional eye complaints ENT: Reports system reviewed and no additional complaints, except as d ocumented Cardiovascular: Cardiovascular: Denies chest pain, Denies irregular heart rhythm, Reports leg edema (Chronic stasis edema) and Reports dyspnea on exertion Respiratory: Respiratory: Reports dyspnea on exertion, Reports snoring and Reports wheezing (Intermittent) Gastrointestinal: Gastrointestinal: Reports no additional gastrointestinal complaints Genitourinary: Genitourinary: Reports no additional male genitourinary complaints Musculoskeletal: Musculoskeletal: Reports no additional musculoskeletal complaints Allergic/Immunologic: Allergic/Immunologic: Reports wheezing (Intermittent) [facility] Past Medical History Medical History Mild intermittent asthma Morbid obesity Family History Family History Other Diabetes Social History Social History Household Members: Family Housing: House Do you presently have visiting nurse or other home services: No Patient Tobacco Use Status: Current everyday Tobacco user Tobacco use type: Cigarette Meds Allergies Allergy/AdvReac Type Severity Reaction Status Date / Time acetaminophen [From VICODIN] Allergy Unknown HIVES Verified 03/17/22 17:55 tramadol [TRAMADOL] Allergy Unknown HIVES Verified 03/17/22 17:55 VOMITING From FLEXERIL Allergy Unknown HIVES Uncoded 06/13/20 15:54 From VICODIN Allergy Unknown HIVES Uncoded 06/13/20 15:54 IVORY SOAP Allergy Unknown Hives Uncoded 03/17/22 17:55 Active Medications: Current Medications Acetaminophen (Acetaminophen 325 Mg Tablet) 650 mg PO Q6H PRN PRN Reason: Pain, Mild (Pain Scale 1-3) Albuterol Sulfate (Albuterol Sulfate 90 Mcg 8 Gm Inhaler) 2 puff INHALE RQ4H PRN PRN Reason: shortness of breath Albuterol/Ipratropium (Albuterol/Iprat 2.5/0.5mg 3 Ml Ampul.Neb) 3 ml INHALE RQ4H PRN PRN Reason: shortness of breath/wheeze Dextrose (Dextrose 50 % 25 Gm/50 Ml Syringe) 25 gm IVPUSH Q15M PRN; Protocol PRN Reason: per Hypoglycemia Standing Ord. Enoxaparin Sodium (Enoxaparin Sodium 40 Mg/0.4 Ml Syringe) 40 mg SUBCUT Q24H JOHN Last Admin: 03/17/22 17:56 Dose: 40 mg Glucose (Glucose Gel 15 Gm Gel..Gram.) 15 gm PO Q15M PRN; Protocol PRN Reason: per Hypoglycemia Standing Ord. Cefazolin Sodium 1 gm/ Sodium (Chloride) 50 mls @ 100 mls/hr IV Q8H [facility] Last Infusion: 03/18/22 00:40 Dose: Infused Clindamycin Phosphate (Cleocin) 600 mg in 50 mls @ 100 mls/hr IV Q8H [facility] Last Infusion: 03/18/22 01:25 Dose: Infused Vancomycin HCl 1,250 mg/ (Sodium Chloride) 250 mls @ 166.667 mls/hr IV Q12H [facility] Last Infusion: 03/18/22 06:14 Dose: Infused Insulin Human Lispro (Insulin Lispro 100 Unit/Ml 3 Ml Vial) 0 unit SUBCUT QIDACHS [facility]; Protocol Last Admin: 03/17/22 21:35 Dose: 2 unit Nicotine (Nicotine 14 Mg Patch.Td24) 14 mg TRANSDERMA DAILY [facility] Last Admin: 03/18/22 01:23 Dose: 14 mg Ondansetron HCl (Ondansetron Hcl 4 Mg/2 Ml Vial) 4 mg IVPUSH Q8H PRN PRN Reason: Nausea and Vomiting Sodium Chloride (0.9 % Sodium Chloride Flush 3 Ml Syringe) 3 ml IVFLUSH QSHIFT [facility] Last Admin: 03/18/22 00:06 Dose: 3 ml Home Medications Medication Instructions Recorded Confirmed Last Taken Type No Known Home Meds 03/17/22 03/17/22 Unknown History Physical Exam Vital Signs: Vital Signs: Last Vital Signs Temp 99.1 F 03/18/22 07:30 Pulse 86 03/18/22 07:30 Resp 22 H 03/18/22 07:30 BP 137/80 03/18/22 07:30 Pulse Ox 93 03/18/22 07:30 O2 Del Method 03/18/22 07:30 O2 Flow Rate 4 03/18/22 07:30 BMI result Body Mass Index 52.7 Const: Other: Morbidly obese with a round face General: comfortable, no acute distress, alert and awake Orientation/consciousness: patient oriented x3 HEENT: Other: Mallampati class 4 Head: Yes normal to inspection General nose exam: No nasal polyps present and No nasal discharge present Face and sinus: Yes sinuses nontender Mouth: oropharynx normal Throat: No posterior oropharynx normal (Very crowded and narrow) Eyes: General: appearance normal, both eyes and all related structures Neck: Neck: Yes normal visual inspection, Yes no lymphadenopathy, Yes trachea midline and Yes no JVD Thyroid: Thyroid normal Chest: Chest palpation & inspection: normal inspection of the chest, normal palpation of entire chest wall and no tenderness Resp: Other: Percussion note not perceptible because of thick chest wall. Breath sounds are distant over the basilar areas. No audible wheezes or crepitations. Cardio: Palpation: normal PMI Rate: regular rate Rhythm: regular rhythm Heart sounds: no gallops and no murmurs GI: Palpation (GI): Soft to palpation, nontender, No hepatosplenomegaly present, no masses and Other GI palpation findings present (Abdomen is obese and protuberant) Auscultation: normal bowel sounds Back/Spine/Pelvis: Thoracic/Lumbar Spine: thoracic and lumbar spine normal to inspection and thoraco-lumbar ROM limited Skin: General skin exam: rashes and/or lesions noted (Erythema of the left leg) Neuro: General: patient oriented x3 and no focal motor deficits Cranial nerves: Yes CN's II-XII intact bilaterally Extrem: General: Yes normal to inspection, Yes no calf tenderness, Yes edema (Massive edema of the legs) and Yes venous stasis dermatitis Psych: Appearance: grossly normal and well kempt Speech and movement: Normal speech and movement present Results Laboratory Findings CBC and BMP: 03/18/22 06:55 03/18/22 06:55 Abnormal lab findings: Abnormal Labs 03/17/22 03/17/22 03/17/22 12:49 12:49 17:07 WBC 12.5 H RBC Hgb 13.9 L MCHC MPV 9.1 L ABG pH at Pt Temp ABG pCO2 at Pt Temp ABG pO2 at Pt Temp ABG HCO3 Carbon Dioxide POC Glucose 180 H Random Glucose 234 H C-Reactive Protein 16.68 H 03/17/22 03/18/22 03/18/22 20:49 02:32 06:55 WBC 11.9 H RBC 4.50 L Hgb 13.0 L MCHC 29.9 L MPV ABG pH at Pt Temp 7.32 L ABG pCO2 at Pt Temp 72 H* ABG pO2 at Pt Temp 81 L ABG HCO3 37 H Carbon Dioxide POC Glucose 179 H Random Glucose C-Reactive Protein 03/18/22 03/18/22 06:55 07:09 WBC RBC Hgb MCHC MPV ABG pH at Pt Temp ABG pCO2 at Pt Temp ABG pO2 at Pt Temp ABG HCO3 Carbon Dioxide 33 H POC Glucose 160 H Random Glucose 186 H C-Reactive Protein Diagnostic Findings Chest x-ray: report reviewed and image reviewed Assessment and Plan (1) Morbid obesity: Status: Acute (2) MALDONADO (obstructive sleep apnea): Status: Acute (3) Hypoventilation associated with obesity: Status: Acute (4) Respiratory failure with hypoxia and hypercapnia: Status: Acute (5) Cellulitis: Status: Acute Plan Clinically, there is no doubt that this gentleman has obstructive sleep apnea/hypoventilation syndrome. History of smoking, and most likely he has chronic restrictive/obstructive pulmonary disorder. Acute on chronic respiratory failure it is probably due to combination of chronic lung disease as well as obesity related hypoventilation. Recc . At present keep him on oxygen by nasal cannula to keep O2 sat above 89- 90%, wean down to see if he can be oxygen it would at 2 L/minute. Overnight oximetry recording with O2 2 L/minute. Repeat VBGs tomorrow a.m. If patient can qualify for use of BiPAP, with the above steps, then he should be started on BIPAP therapy, while here in the hospital and to be continued as outpatient. If he does not meet criteria for qualification, then he would need a sleep study as outpatient as soon as possible . Smoking cessation , patient counseling and may benefit from use of nicotine patches. He would need pulmonary function test as outpatient. This gentleman is fully aware of the fact that he needs, something to be done about his sleep apnea. He does need thorough Education, and motivation to start on active treatment. I have explained to him about all the above noted issues, in detail and he seems to understand well . Procedures Date of Service Date of Service: 03/18/22
--- NOTE | 2022-03-18 09:19 | P.PNGS_ITS ---
Subjective Subjective Date of Service: 03/18/22 Interval history: He says he continues to have pain on the left leg although he thinks that this has improved compared to yesterday Says he has better range of motion on the ankle Physical Exam Vital Signs: Vital Signs: Last Vital Signs Temp 99.1 F 03/18/22 07:30 Pulse 86 03/18/22 07:30 Resp 22 H 03/18/22 07:30 BP 137/80 03/18/22 07:30 Pulse Ox 93 03/18/22 07:30 O2 Del Method 03/18/22 07:30 O2 Flow Rate 4 03/18/22 07:30 BMI result Body Mass Index 52.7 Const: Other: Morbidly obese General: comfortable and no acute distress Orientation/consciousness: No oriented to place Resp: Effort & Inspection: normal respiratory effort Cardio: Rate: regular rate GI: Palpation (GI): Soft to palpation and nontender Neuro: General: No oriented to place Extrem: Other: Left lower leg with diffuse cellulitic changes, otherwise soft, no evidence of any fluctuance or localized induration Objective Data Active Medications Acetaminophen (Acetaminophen 325 Mg Tablet) 650 mg PO Q6H PRN PRN Reason: Pain, Mild (Pain Scale 1-3) Albuterol Sulfate (Albuterol Sulfate 90 Mcg 8 Gm Inhaler) 2 puff INHALE RQ4H PRN PRN Reason: shortness of breath Albuterol/Ipratropium (Albuterol/Iprat 2.5/0.5mg 3 Ml Ampul.Neb) 3 ml INHALE RQ4H PRN PRN Reason: shortness of breath/wheeze Dextrose (Dextrose 50 % 25 Gm/50 Ml Syringe) 25 gm IVPUSH Q15M PRN; Protocol PRN Reason: per Hypoglycemia Standing Ord. Enoxaparin Sodium (Enoxaparin Sodium 40 Mg/0.4 Ml Syringe) 40 mg SUBCUT Q24H [facility] Last Admin: 03/17/22 17:56 Dose: 40 mg Documented By: WING Glucose (Glucose Gel 15 Gm Gel..Gram.) 15 gm PO Q15M PRN; Protocol PRN Reason: per Hypoglycemia Standing Ord. Cefazolin Sodium 1 gm/ Sodium (Chloride) 50 mls @ 100 mls/hr IV Q8H [facility] Last Infusion: 03/18/22 00:40 Dose: 0 mls/hr Documented By: TYSON Clindamycin Phosphate (Cleocin) 600 mg in 50 mls @ 100 mls/hr IV Q8H [facility] Last Infusion: 03/18/22 01:25 Dose: 0 mls/hr Documented By: TYSON Vancomycin HCl 1,250 mg/ (Sodium Chloride) 250 mls @ 166.667 mls/hr IV Q12H [facility] Last Infusion: 03/18/22 06:14 Dose: 0 mls/hr Documented By: TYSON Insulin Human Lispro (Insulin Lispro 100 Unit/Ml 3 Ml Vial) 0 unit SUBCUT QIDACHS [facility]; Protocol Last Admin: 03/17/22 21:35 Dose: 2 unit Documented By: BROLydia Nicotine (Nicotine 14 Mg Patch.Td24) 14 mg TRANSDERMA DAILY [facility] Last Admin: 03/18/22 01:23 Dose: 14 mg Documented By: TYSON Ondansetron HCl (Ondansetron Hcl 4 Mg/2 Ml Vial) 4 mg IVPUSH Q8H PRN PRN Reason: Nausea and Vomiting Sodium Chloride (0.9 % Sodium Chloride Flush 3 Ml Syringe) 3 ml IVFLUSH QSHIFT [facility] Last Admin: 03/18/22 00:06 Dose: 3 ml Documented By: TYSON Labs CBC & Chem 7: 03/18/22 06:55 03/18/22 06:55 Labs: Laboratory Results - last 24 hr 03/17/22 03/17/22 03/17/22 12:49 12:49 12:49 MCV 94.6 MCH 29.8 MCHC 31.4 RDW 13.8 Plt Count 214 MPV 9.1 L Absolute Nucleated RBC 0.000 Nucleated RBC % (auto) 0.0 O2 Saturation ABG pH at Pt Temp ABG pCO2 at Pt Temp ABG pO2 at Pt Temp ABG HCO3 ABG Base Excess (Actual) Anion Gap 14 Estim Creat Clear Calc 185.9 Estimated GFR > 60 POC Glucose Random Glucose 234 H Estimat Average Glucose Hemoglobin A1c % Lactic Acid Calcium 8.8 C-Reactive Protein 16.68 H COVID-19 (EVELINA) Negative COVID-19 Clin Com See Note 03/17/22 03/17/22 03/17/22 12:49 15:30 17:07 MCV MCH MCHC RDW Plt Count MPV Absolute Nucleated RBC Nucleated RBC % (auto) O2 Saturation ABG pH at Pt Temp ABG pCO2 at Pt Temp ABG pO2 at Pt Temp ABG HCO3 ABG Base Excess (Actual) Anion Gap Estim Creat Clear Calc Estimated GFR POC Glucose 180 H Random Glucose Estimat Average Glucose 163 Hemoglobin A1c % 7.3 Lactic Acid 1.0 Calcium C-Reactive Protein COVID-19 (EVELINA) COVID-19 [facility] 03/17/22 03/18/22 03/18/22 20:49 02:32 06:55 MCV 96.7 MCH 28.9 MCHC 29.9 L RDW 14.1 Plt Count 207 MPV 9.5 Absolute Nucleated RBC 0.000 Nucleated RBC % (auto) 0.0 O2 Saturation 95.0 ABG pH at Pt Temp 7.32 L ABG pCO2 at Pt Temp 72 H* ABG pO2 at Pt Temp 81 L ABG HCO3 37 H ABG Base Excess (Actual) 8.6 Anion Gap Estim Creat Clear Calc Estimated GFR POC Glucose 179 H Random Glucose Estimat Average Glucose Hemoglobin A1c % Lactic Acid Calcium C-Reactive Protein COVID-19 (EVELINA) [employer] 03/18/22 03/18/22 06:55 07:09 MCV MCH MCHC RDW Plt Count MPV Absolute Nucleated RBC Nucleated RBC % (auto) O2 Saturation ABG pH at Pt Temp ABG pCO2 at Pt Temp ABG pO2 at Pt Temp ABG HCO3 ABG Base Excess (Actual) Anion Gap 13 Estim Creat Clear Calc 203.5 Estimated GFR > 60 POC Glucose 160 H Random Glucose 186 H Estimat Average Glucose Hemoglobin A1c % Lactic Acid Calcium 8.9 C-Reactive Protein COVID-19 (EVELINA) COVID-19 [facility] Procedures Date of Service Date of Service: 03/18/22 Progress Note: A&P Assessment and plan (1) Cellulitis: Status: Acute Assessment and Plan: The left leg remained cellulitic I have elevated this on multiple pillows I told him elevation is important to decrease edema and inflammatory changes He has been started on IV antibiotics He looks comfortable and does not appear septic Time Spent With Patient Time: Total time spent is greater than 50% in coordination of care (as documented) at patient's floor/unit and/or counseling patient: Quality Stroke Does the patient have a stroke diagnosis?: No VTE Prior VTE?: No VTE Risk Level:: Medical - moderate - high VTE Device Contraindication: N/A - Device Ordered VTE Drug Contraindication: N/A - Med Ordered
--- NOTE | 2022-03-18 10:24 | PM.CNCAR ---
History of Present Illness History of Present Illness Date of Service: 03/18/22 Requesting physician: Catherine Duarte Consult reason: other (Sinus pause, AV block) Chief complaint: Sepsis,cellulitis Narrative: I was consulted to see Marquis in cardiology consultation today because of significant pauses and advanced AV block noted on tele monitoring. Patient came in because of redness and swelling in his left lower extremity. He was admitted for cellulitis. However he was noted to have these pauses on telemetry. All of these events are when he is sleeping. This is highly consistent obstructive sleep apnea. He tells me that he has had significant daytime drowsiness and witnessed apnea and was planned to undergo sleep study but this is not happen. Patient with the last couple months has had increasing shortness of breath, increased leg edema and has gained significant amount of weight says since last year about 100 lb. He is also notice abdominal distension. He short of breath and blames this on his underlying asthma/COPD and bronchospastic airway disease says he has smoked for 20 years. Clinically appears to be short of breath. He is admitted with respiratory failure with hypoxia and hypercapnia. Review of Systems Constitutional: Constitutional: Reports daytime sleepiness, Reports snoring and Reports stops breathing during sleep Eyes: Eyes: Reports no additional eye complaints Cardiovascular: Cardiovascular: Denies chest pain, Reports leg edema, Denies lightheadedness, Denies Loss of Consciousness, Denies palpitations, Reports dyspnea on exertion and Reports orthopnea Respiratory: Respiratory: Reports dyspnea on exertion, Reports snoring and Reports wheezing Gastrointestinal: Gastrointestinal: Reports no additional gastrointestinal complaints Genitourinary: Genitourinary: Reports no additional male genitourinary complaints Musculoskeletal: Musculoskeletal: Reports no additional musculoskeletal complaints Neurologic: Reports system reviewed and no additional complaints, except as documented Psychiatric: Psychiatric: Reports no additional psychiatric complaints Endocrine: Endocrine: Reports no additional endocrine complaints and Denies palpitations Hematologic/Lymphatic: Hematologic/Lymphatic: Reports no additional hematologic/lymphatic complaints Allergic/Immunologic: Allergic/Immunologic: Reports no additional allergic/immunologic complaints and Reports wheezing PMFSH Past Medical History Medical History Mild intermittent asthma Morbid obesity Family History Family History Other Diabetes Social History Social History Household Members: Family Housing: House Do you presently have visiting nurse or other home services: No Patient Tobacco Use Status: Current everyday Tobacco user Tobacco use type: Cigarette service: No Meds Allergies Allergy/AdvReac Type Severity Reaction Status Date / Time acetaminophen [From VICODIN] Allergy Unknown HIVES Verified 03/17/22 17:55 tramadol [TRAMADOL] Allergy Unknown HIVES Verified 03/17/22 17:55 VOMITING From FLEXERIL Allergy Unknown HIVES Uncoded 06/13/20 15:54 From VICODIN Allergy Unknown HIVES Uncoded 06/13/20 15:54 IVORY SOAP Allergy Unknown Hives Uncoded 03/17/22 17:55 Active Medications: Current Medications Acetaminophen (Acetaminophen 325 Mg Tablet) 650 mg PO Q6H PRN PRN Reason: Pain, Mild (Pain Scale 1-3) Albuterol Sulfate (Albuterol Sulfate 90 Mcg 8 Gm Inhaler) 2 puff INHALE RQ4H PRN PRN Reason: shortness of breath Albuterol/Ipratropium (Albuterol/Iprat 2.5/0.5mg 3 Ml Ampul.Neb) 3 ml INHALE RQ4H PRN PRN Reason: shortness of breath/wheeze Dextrose (Dextrose 50 % 25 Gm/50 Ml Syringe) 25 gm IVPUSH Q15M PRN; Protocol PRN Reason: per Hypoglycemia Standing Ord. Enoxaparin Sodium (Enoxaparin Sodium 40 Mg/0.4 Ml Syringe) 40 mg SUBCUT Q24H [facility] Last Admin: 03/17/22 17:56 Dose: 40 mg Glucose (Glucose Gel 15 Gm Gel..Gram.) 15 gm PO Q15M PRN; Protocol PRN Reason: per Hypoglycemia Standing Ord. Cefazolin Sodium 1 gm/ Sodium (Chloride) 50 mls @ 100 mls/hr IV Q8H [facility] Last Infusion: 03/18/22 00:40 Dose: Infused Clindamycin Phosphate (Cleocin) 600 mg in 50 mls @ 100 mls/hr IV Q8H [facility] Last Infusion: 03/18/22 01:25 Dose: Infused Vancomycin HCl 1,250 mg/ (Sodium Chloride) 250 mls @ 166.667 mls/hr IV Q12H [facility] Last Infusion: 03/18/22 06:14 Dose: Infused Insulin Human Lispro (Insulin Lispro 100 Unit/Ml 3 Ml Vial) 0 unit SUBCUT QIDACHS [facility]; Protocol Last Admin: 03/17/22 21:35 Dose: 2 unit Nicotine (Nicotine 14 Mg Patch.Td24) 14 mg TRANSDERMA DAILY [facility] Last Admin: 03/18/22 01:23 Dose: 14 mg Ondansetron HCl (Ondansetron Hcl 4 Mg/2 Ml Vial) 4 mg IVPUSH Q8H PRN PRN Reason: Nausea and Vomiting Sodium Chloride (0.9 % Sodium Chloride Flush 3 Ml Syringe) 3 ml IVFLUSH QSHIFT [facility] Last Admin: 03/18/22 00:06 Dose: 3 ml Home Medications Medication Instructions Recorded Confirmed Last Taken Type No Known Home Meds 03/17/22 03/17/22 Unknown History Physical Exam Vital Signs: Vital Signs: Last Vital Signs Temp 99.1 F 03/18/22 07:30 Pulse 86 03/18/22 07:30 Resp 22 H 03/18/22 07:30 BP 137/80 03/18/22 07:30 Pulse Ox 93 03/18/22 07:30 O2 Del Method 03/18/22 07:30 O2 Flow Rate 4 03/18/22 07:30 BMI result Body Mass Index 52.7 Const: General: cooperative, alert, awake and in distress moderate and respiratory Nutritional Appearance: obese morbidly obese Orientation/consciousness: patient oriented x3 HEENT: Head: Yes normocephalic and Yes atraumatic Neck: Neck: Yes trachea midline, Yes supple and Yes other (Cannot evaluate JVD) Resp: Effort & Inspection: normal respiratory effort Auscultation: no rales, wheezes and diminished lung sounds Cardio: Rate: regular rate Rhythm: regular rhythm Heart sounds: S1 normal heart sound present, S2 normal heart sound present, no click, no gallops, no murmurs and no rubs GI: Inspection: Yes distended Auscultation: normal bowel sounds Skin: General skin exam: no rashes or lesions noted Neuro: General: patient oriented x3 and no focal motor deficits Extrem: General: No clubbing, No cyanosis and Yes edema (Three to 4+ edema) Objective Labs and Meds Result diagrams: 03/18/22 06:55 03/18/22 06:55 Lab results: Laboratory Results - last 24 hr 06/03/17/22 03/17/22 12:49 12:49 12:49 WBC 12.5 H RBC 4.67 Hgb 13.9 L Hct 44.2 MCV 94.6 MCH 29.8 MCHC 31.4 RDW 13.8 Plt Count 214 MPV 9.1 L Absolute Nucleated RBC 0.000 Nucleated RBC % (auto) 0.0 O2 Saturation ABG pH at Pt Temp ABG pCO2 at Pt Temp ABG pO2 at Pt Temp ABG HCO3 ABG Base Excess (Actual) Sodium 137 Potassium 4.3 Chloride 100 Carbon Dioxide 27 Anion Gap 14 BUN 10 Creatinine 0.84 Estim Creat Clear Calc 185.9 Estimated GFR > 60 POC Glucose Random Glucose 234 H Estimat Average Glucose Hemoglobin A1c % Lactic Acid Calcium 8.8 C-Reactive Protein 16.68 H COVID-19 (EVELINA) Negative COVID-19 Navidog Com See Note 03/17/22 03/17/22 03/17/22 12:49 15:30 17:07 WBC RBC Hgb Hct MCV MCH MCHC RDW Plt Count MPV Absolute Nucleated RBC Nucleated RBC % (auto) O2 Saturation ABG pH at Pt Temp ABG pCO2 at Pt Temp ABG pO2 at Pt Temp ABG HCO3 ABG Base Excess (Actual) Sodium Potassium Chloride Carbon Dioxide Anion Gap BUN Creatinine Estim Creat Clear Calc Estimated GFR POC Glucose 180 H Random Glucose Estimat Average Glucose 163 Hemoglobin A1c % 7.3 Lactic Acid 1.0 Calcium C-Reactive Protein COVID-19 (EVELINA) COVID-19 [employer] 03/17/22 03/18/22 03/18/22 20:49 02:32 06:55 WBC 11.9 H RBC 4.50 L Hgb 13.0 L Hct 43.5 MCV 96.7 MCH 28.9 MCHC 29.9 L RDW 14.1 Plt Count 207 MPV 9.5 Absolute Nucleated RBC 0.000 Nucleated RBC % (auto) 0.0 O2 Saturation 95.0 ABG pH at Pt Temp 7.32 L ABG pCO2 at Pt Temp 72 H* ABG pO2 at Pt Temp 81 L ABG HCO3 37 H ABG Base Excess (Actual) 8.6 Sodium Potassium Chloride Carbon Dioxide Anion Gap BUN Creatinine Estim Creat Clear Calc Estimated GFR POC Glucose 179 H Random Glucose Estimat Average Glucose Hemoglobin A1c % Lactic Acid Calcium C-Reactive Protein COVID-19 ([facility]ELINA) COVID-19 Clin Com 03/18/22 03/18/22 06:55 07:09 WBC RBC Hgb Hct MCV MCH MCHC RDW Plt Count MPV Absolute Nucleated RBC Nucleated RBC % (auto) O2 Saturation ABG pH at Pt Temp ABG pCO2 at Pt Temp ABG pO2 at Pt Temp ABG HCO3 ABG Base Excess (Actual) Sodium 139 Potassium 5.0 Chloride 98 Carbon Dioxide 33 H Anion Gap 13 BUN 12 Creatinine 0.79 Estim Creat Clear Calc 203.5 Estimated GFR > 60 POC Glucose 160 H Random Glucose 186 H Estimat Average Glucose Hemoglobin A1c % Lactic Acid Calcium 8.9 C-Reactive Protein COVID-19 ([facility]ELINA) COVID-19 Clin Com Imaging Radiologist's impression: Impressions Venous Duplex 03/17/22 13:53 IMPRESSION: No DVT demonstrated in the left lower extremity. Assessment and Plan (1) Sinus pause: Status: Acute Patient with sinus pauses up to 7 seconds as well as advanced AV block and occasionally AV Wenckebach all while he is sleeping. This is most suggestive underlying obstructive sleep apnea. Would empirically treat him with CPAP/BiPAP while in hospital and urgently evaluate for outpatient sleep study. Pulmonary consultation should be obtained. This is explained to the patient. There is no indication for pacing at this point in time. (2) Respiratory failure with hypoxia and hypercapnia: Status: Acute Patient with morbid obesity with respiratory failure with hypoxia and hypercapnia high likelihood of obesity hypoventilation syndrome along with signs and symptoms suggestive of fluid overload related to right heart failure as well as symptoms suggestive congestive heart failure. At this point in time I would diurese him with Lasix boluses. Strict intake and output chart needs to be pursued. Most likely cause for his heart failure appears to be morbid obesity as well as probably untreated sleep apnea. Echocardiogram to evaluate for LV systolic and diastolic function as well as RV size and systolic function as well as pulmonary hypertension. Continue also pulmonary optimization as appears to be wheezing currently. Consider pulmonary consultation as well. Will continue to follow with you Procedures Date of Service Date of Service: 03/18/22
[2022-03-18] MEDS: Insulin Lispro 100 UNIT/ML 3 ML VIAL SUBCUT ×2 (10:49→11:37)
[2022-03-18 11:03] LABS: Glucose, Whole Blood 159 mg/dL (60-115)
[2022-03-18] MEDS: Furosemide 40 MG/4 ML VIAL IVPUSH (11:36)
--- NOTE | 2022-03-18 11:36 | MHC.CM.PN ---
met with pt who lives with family he has own ride home is not covid vaxx dc plan tbd liley home no servceis vs home with iv antibiotics
--- NOTE | 2022-03-18 13:47 | P.PNIM_ITS ---
Subjective Subjective Date of Service: 03/18/22 Interval History: Legs swollen, short of breath LLE still red/ painful Desaturates when asleep Sinus pause last night Review of Systems Review of Systems: Yes all other systems are reviewed and are negative Physical Exam Vital Signs: Vital Signs: Last Vital Signs Temp 98.4 F 03/18/22 11:21 Pulse 95 03/18/22 11:21 Resp 20 03/18/22 11:21 BP 136/70 03/18/22 11:21 Pulse Ox 96 03/18/22 11:21 O2 Del Method 03/18/22 11:21 O2 Flow Rate 4 03/18/22 11:21 BMI result Body Mass Index 52.7 Gen: in no acute distress HEENT: sclera anicteric, moist mucus membranes Neck: supple Lungs: diminished Heart: regular rate and rhythm, no murmurs Abd: soft, non-tender, non-distended, morbidly obese Ext: extensive well-demarcated erythema, induration, and warmth involving the right almazan and calf, no fluctuant collections of fluid; bilateraly pitting edema 2+ Skin: warm/well-perfused Neuro: alert and oriented x3, no focal findings Psych: appropriate affect Objective Data Active Medications Acetaminophen (Acetaminophen 325 Mg Tablet) 650 mg PO Q6H PRN PRN Reason: Pain, Mild (Pain Scale 1-3) Albuterol Sulfate (Albuterol Sulfate 90 Mcg 8 Gm Inhaler) 2 puff INHALE RQ4H PRN PRN Reason: shortness of breath Albuterol/Ipratropium (Albuterol/Iprat 2.5/0.5mg 3 Ml Ampul.Neb) 3 ml INHALE RQ4H PRN PRN Reason: shortness of breath/wheeze Dextrose (Dextrose 50 % 25 Gm/50 Ml Syringe) 25 gm IVPUSH Q15M PRN; Protocol PRN Reason: per Hypoglycemia Standing Ord. Enoxaparin Sodium (Enoxaparin Sodium 40 Mg/0.4 Ml Syringe) 40 mg SUBCUT Q24H [facility] Last Admin: 03/17/22 17:56 Dose: 40 mg Documented By: WING Furosemide (Furosemide 40 Mg/4 Ml Vial) 40 mg IVPUSH DAILY [facility]; Protocol Last Admin: 03/18/22 11:36 Dose: 40 mg Documented By: QUINTON-SOFFA Glucose (Glucose Gel 15 Gm Gel..Gram.) 15 gm PO Q15M PRN; Protocol PRN Reason: per Hypoglycemia Standing Ord. Clindamycin Phosphate (Cleocin) 600 mg in 50 mls @ 100 mls/hr IV Q8H [facility] Last Infusion: 03/18/22 11:25 Dose: 0 mls/hr Documented By: QUINTON-SOFFA Vancomycin HCl 1,250 mg/ (Sodium Chloride) 250 mls @ 166.667 mls/hr IV Q12H [facility] Last Infusion: 03/18/22 06:14 Dose: 0 mls/hr Documented By: TYSON Cefazolin Sodium 1 gm/ Sodium (Chloride) 50 mls @ 100 mls/hr IV Q8H [facility] Last Infusion: 03/18/22 12:28 Dose: 0 mls/hr Documented By: QUINTON-LINO Insulin Human Lispro (Insulin Lispro 100 Unit/Ml 3 Ml Vial) 0 unit SUBCUT QIDACHS [facility]; Protocol Last Admin: 03/18/22 11:37 Dose: 2 unit Documented By: QUINTON-SOFCHU Nicotine (Nicotine 14 Mg Patch.Td24) 14 mg TRANSDERMA DAILY [facility] Last Admin: 03/18/22 10:48 Dose: 14 mg Documented By: QUINTON-LINO Ondansetron HCl (Ondansetron Hcl 4 Mg/2 Ml Vial) 4 mg IVPUSH Q8H PRN PRN Reason: Nausea and Vomiting Sodium Chloride (0.9 % Sodium Chloride Flush 3 Ml Syringe) 3 ml IVFLUSH QSHIFT [facility] Last Admin: 03/18/22 10:48 Dose: Not Given Documented By: QUINTON-LINO Non-Admin Reason: assessed Labs CBC & Chem 7: 03/18/22 06:55 03/18/22 06:55 Labs: Laboratory Results - last 24 hr 03/17/22 03/17/22 03/17/22 12:49 12:49 15:30 MCV MCH MCHC RDW Plt Count MPV Absolute Nucleated RBC Nucleated RBC % (auto) O2 Saturation ABG pH at Pt Temp ABG pCO2 at Pt Temp ABG pO2 at Pt Temp ABG HCO3 ABG Base Excess (Actual) Anion Gap Estim Creat Clear Calc Estimated GFR POC Glucose Random Glucose Estimat Average Glucose 163 Hemoglobin A1c % 7.3 Lactic Acid 1.0 Calcium C-Reactive Protein 16.68 H 03/17/22 03/17/22 03/18/22 17:07 20:49 02:32 MCV MCH MCHC RDW Plt Count MPV Absolute Nucleated RBC Nucleated RBC % (auto) O2 Saturation 95.0 ABG pH at Pt Temp 7.32 L ABG pCO2 at Pt Temp 72 H* ABG pO2 at Pt Temp 81 L ABG HCO3 37 H ABG Base Excess (Actual) 8.6 Anion Gap Estim Creat Clear Calc Estimated GFR POC Glucose 180 H 179 H Random Glucose Estimat Average Glucose Hemoglobin A1c % Lactic Acid Calcium C-Reactive Protein 03/18/22 03/18/22 03/18/22 06:55 06:55 07:09 MCV 96.7 MCH 28.9 MCHC 29.9 L RDW 14.1 Plt Count 207 MPV 9.5 Absolute Nucleated RBC 0.000 Nucleated RBC % (auto) 0.0 O2 Saturation ABG pH at Pt Temp ABG pCO2 at Pt Temp ABG pO2 at Pt Temp ABG HCO3 ABG Base Excess (Actual) Anion Gap 13 Estim Creat Clear Calc 203.5 Estimated GFR > 60 POC Glucose 160 H Random Glucose 186 H Estimat Average Glucose Hemoglobin A1c % Lactic Acid Calcium 8.9 C-Reactive Protein 03/18/22 10:54 MCV MCH MCHC RDW Plt Count MPV Absolute Nucleated RBC Nucleated RBC % (auto) O2 Saturation ABG pH at Pt Temp ABG pCO2 at Pt Temp ABG pO2 at Pt Temp ABG HCO3 ABG Base Excess (Actual) Anion Gap Estim Creat Clear Calc Estimated GFR POC Glucose 159 H Random Glucose Estimat Average Glucose Hemoglobin A1c % Lactic Acid Calcium C-Reactive Protein Assessment and Plan (1) Respiratory failure with hypoxia and hypercapnia: Status: Acute (2) Hypoventilation associated with obesity: Status: Acute (3) MALDONADO (obstructive sleep apnea): Status: Acute (4) Morbid obesity: Status: Acute (5) Cellulitis: Status: Acute Plan 31yo M with morbid obesity, intermittent asthma, possible MALDONADO presenting with 1d of rapidly progressive erythema, induration, and warmth of the RLE and found to be septic due to cellultiis/erysipelas # cellulitis/erysipelas - d#2 clindamycin + cefazolin + vancomycin, follow BCx, not thought to have necrotizing infection, Surgery following, elevate leg as much as possible # chronic hypoxic/hypercapneic respiratory failure - likely severe MALDONADO. Pulmonology consulted. overnight oximetry to qualify for home BiPAP. # suspected HF - unknown EF, TTE pending. high probability of R-sided HF. start diuresis with furosemide. Cardiology consulted + following. # mild intermittent asthma - prn albuterol HFA # new dx DM2, A1c 7.3 - correction-dose lispro, d/c on MTF # morbid obesity - will need outpt Bariatric and Sleep Medicine evaluations # VTE ppx - LMWH In my clinical judgment, the patient requires continued hospitalization for the following reasons: IV ABX, hypoxia Quality Stroke Does the patient have a stroke diagnosis?: No VTE Prior VTE?: No VTE Risk Level:: Medical - moderate - high VTE Device Contraindication: N/A - Device Ordered VTE Drug Contraindication: N/A - Med Ordered
[2022-03-18] MEDS: Enoxaparin Sodium 40 MG/0.4 ML SYRINGE SUBCUT (15:06)
[2022-03-18 15:43] LABS: B Type Natriuretic Peptide 23 pg/mL (<100); Vancomycin Trough 4.8 mcg/mL (10.0-20.0)
[2022-03-18 16:19] LABS: Glucose, Whole Blood 146 mg/dL (60-115)
--- NOTE | 2022-03-18 18:34 | PC.NURSE ---
pt c/o CONNER pain, informed, ivp pain med administered w/ + effect. poc maintianed. safety and fall precautions in place. call rodriguez within reach. pt able to ambulate safely and repo self. visitors at bedside.
[2022-03-18 20:04] LABS: Glucose, Whole Blood 132 mg/dL (60-115)
[2022-03-19] VITALS (7 sets, daily range): BP systolic 124–156; BP diastolic 63–86; PULSE 76–104; RESP 18–20; TEMP 36.3–37.2; O2SAT 91–99
[2022-03-19] MEDS: Clindamycin Phosphate/D5W 600 MG/50 ML PIGGYBACK 100 MG IV ×3 (00:24→16:44)
[2022-03-19] MEDS: 0.9 % Sodium Chloride Flush 3 ML SYRINGE IVFLUSH ×2 (00:28→20:25)
[2022-03-19] MEDS: vancomycin HCL 1,250 MG in 0.9 % Sodium Chloride 250 ML 166.67 MG IV (00:49)
[2022-03-19 06:13] LABS: VBG HCO3 39 mmol/L (22-26); VBG pCO2 75 mmHg; VBG pH 7.32 (7.32-7.43); VBG pO2 59 mmHg
[2022-03-19 06:13] LABS: Venous Blood Gas Refer to POC result
[2022-03-19 06:24] LABS: Hematocrit 43.6 % (42.0-52.0); Hemoglobin 13.5 g/dl (14.0-18.0); Mean Corpuscular Hemoglobin 29.5 pg (27.0-33.0); Mean Corpuscular Volume 95.2 fL (80.0-98.0); Mean Platelet Volume 9.1 fL (9.4-12.4); Platelet Count 235 X10*3/uL (160-400); Red Blood Count 4.58 X10*6/uL (4.60-5.80); Red Cell Distribution Width 14.1 % (11.0-16.0); White Blood Count 10.8 X10*3/uL (4.8-10.8)
[2022-03-19 06:28] LABS: Anion Gap 12 (12-20); Blood Urea Nitrogen 14 mg/dL (9-16); Carbon Dioxide 35 mmol/L (22-29); Chloride 98 mmol/L (96-108); Estimated Glomerular Filt Rate > 60; Glucose Random 163 mg/dL (60-115); Potassium 4.8 mmol/L (3.3-5.1); Sodium 140 mmol/L (135-145)
[2022-03-19 07:46] LABS: Glucose, Whole Blood 147 mg/dL (60-115)
[2022-03-19] MEDS: vancomycin HCL 1,250 MG in 0.9 % Sodium Chloride 250 ML 166 MG IV (08:18)
[2022-03-19] MEDS: Nicotine 14 MG PATCH.TD24 TRANSDERMA ×2 (08:18→20:25)
[2022-03-19] MEDS: Furosemide 40 MG/4 ML VIAL IVPUSH (08:18)
--- NOTE | 2022-03-19 09:29 | P.PNGS_ITS ---
Subjective Subjective Date of Service: 03/19/22 Interval history: No new complaints Says leg pain is better Range of motion on the ankle and foot also better Physical Exam Vital Signs: Vital Signs: Last Vital Signs Temp 97.4 F 03/19/22 08:00 Pulse 76 03/19/22 08:00 Resp 20 03/19/22 08:00 BP 128/73 03/19/22 08:00 Pulse Ox 91 L 03/19/22 08:00 O2 Del Method 03/19/22 08:00 O2 Flow Rate 4 03/19/22 02:37 BMI result Body Mass Index 52.7 Const: Other: Sitting up, appears comfortable General: comfortable and no acute distress Resp: Effort & Inspection: normal respiratory effort Cardio: Rate: regular rate Extrem: Other: Persistent diffuse redness of the lower left leg, with edema, soft Objective Data Active Medications Acetaminophen (Acetaminophen 325 Mg Tablet) 650 mg PO Q6H PRN PRN Reason: Pain, Mild (Pain Scale 1-3) Albuterol Sulfate (Albuterol Sulfate 90 Mcg 8 Gm Inhaler) 2 puff INHALE RQ4H PRN PRN Reason: shortness of breath Albuterol/Ipratropium (Albuterol/Iprat 2.5/0.5mg 3 Ml Ampul.Neb) 3 ml INHALE RQ4H PRN PRN Reason: shortness of breath/wheeze Dextrose (Dextrose 50 % 25 Gm/50 Ml Syringe) 25 gm IVPUSH Q15M PRN; Protocol PRN Reason: per Hypoglycemia Standing Ord. Enoxaparin Sodium (Enoxaparin Sodium 40 Mg/0.4 Ml Syringe) 40 mg SUBCUT Q24H [facility] Last Admin: 03/18/22 15:06 Dose: 40 mg Documented By: CJ Furosemide (Furosemide 40 Mg/4 Ml Vial) 40 mg IVPUSH DAILY [facility]; Protocol Last Admin: 03/19/22 08:18 Dose: 40 mg Documented By: CJ Glucose (Glucose Gel 15 Gm Gel..Gram.) 15 gm PO Q15M PRN; Protocol PRN Reason: per Hypoglycemia Standing Ord. Clindamycin Phosphate (Cleocin) 600 mg in 50 mls @ 100 mls/hr IV Q8H [facility] Last Infusion: 03/19/22 09:01 Dose: 0 mls/hr Documented By: CJ Cefazolin Sodium 1 gm/ Sodium (Chloride) 50 mls @ 100 mls/hr IV Q8H [facility] Last Infusion: 03/19/22 04:01 Dose: 0 mls/hr Documented By: MURRAY Vancomycin HCl 1,250 mg/ (Sodium Chloride) 250 mls @ 166.667 mls/hr IV Q8H [facility] Last Admin: 03/19/22 08:18 Dose: 166 mls/hr Documented By: CJ Insulin Human Lispro (Insulin Lispro 100 Unit/Ml 3 Ml Vial) 0 unit SUBCUT QIDACHS [facility]; Protocol Last Admin: 03/19/22 07:44 Dose: Not Given Documented By: CJ Non-Admin Reason: poc oor Nicotine (Nicotine 14 Mg Patch.Td24) 14 mg TRANSDERMA DAILY [facility] Last Admin: 03/19/22 08:18 Dose: 14 mg Documented By: CJ Ondansetron HCl (Ondansetron Hcl 4 Mg/2 Ml Vial) 4 mg IVPUSH Q8H PRN PRN Reason: Nausea and Vomiting Sodium Chloride (0.9 % Sodium Chloride Flush 3 Ml Syringe) 3 ml IVFLUSH QSHIFT [facility] Last Admin: 03/19/22 07:11 Dose: Not Given Documented By: CJ Non-Admin Reason: assessed Labs CBC & Chem 7: 03/19/22 06:02 03/19/22 06:02 Labs: Laboratory Results - last 24 hr 03/18/22 03/18/22 03/18/22 02:32 10:54 14:59 MCV MCH MCHC RDW Plt Count MPV Absolute Nucleated RBC Nucleated RBC % (auto) O2 Saturation 95.0 ABG pH at Pt Temp 7.32 L ABG pCO2 at Pt Temp 72 H* ABG pO2 at Pt Temp 81 L ABG HCO3 37 H ABG Base Excess (Actual) 8.6 VBG pH VBG pCO2 VBG pO2 VBG HCO3 VBG O2 Saturation VBG Base Excess Anion Gap Estim Creat Clear Calc Estimated GFR POC Glucose 159 H Random Glucose Calcium C-Reactive Protein B-Natriuretic Peptide Vancomycin Trough 4.8 L 03/18/22 03/18/22 03/18/22 14:59 16:13 19:59 MCV MCH MCHC RDW Plt Count MPV Absolute Nucleated RBC Nucleated RBC % (auto) O2 Saturation ABG pH at Pt Temp ABG pCO2 at Pt Temp ABG pO2 at Pt Temp ABG HCO3 ABG Base Excess (Actual) VBG pH VBG pCO2 VBG pO2 VBG HCO3 VBG O2 Saturation VBG Base Excess Anion Gap Estim Creat Clear Calc Estimated GFR POC Glucose 146 H 132 H Random Glucose Calcium C-Reactive Protein B-Natriuretic Peptide 23 Vancomycin Trough 03/19/22 03/19/22 03/19/22 06:02 06:02 06:08 MCV 95.2 MCH 29.5 MCHC 31.0 RDW 14.1 Plt Count 235 MPV 9.1 L Absolute Nucleated RBC 0.000 Nucleated RBC % (auto) 0.0 O2 Saturation ABG pH at Pt Temp ABG pCO2 at Pt Temp ABG pO2 at Pt Temp ABG HCO3 ABG Base Excess (Actual) VBG pH 7.32 VBG pCO2 75 VBG pO2 59 VBG HCO3 39 H VBG O2 Saturation 86.0 VBG Base Excess 10.0 Anion Gap 12 Estim Creat Clear Calc 201.0 Estimated GFR > 60 POC Glucose Random Glucose 163 H Calcium 9.0 C-Reactive Protein 11.00 H B-Natriuretic Peptide Vancomycin Trough 03/19/22 07:33 MCV MCH MCHC RDW Plt Count MPV Absolute Nucleated RBC Nucleated RBC % (auto) O2 Saturation ABG pH at Pt Temp ABG pCO2 at Pt Temp ABG pO2 at Pt Temp ABG HCO3 ABG Base Excess (Actual) VBG pH VBG pCO2 VBG pO2 VBG HCO3 VBG O2 Saturation VBG Base Excess Anion Gap Estim Creat Clear Calc Estimated GFR POC Glucose 147 H Random Glucose Calcium C-Reactive Protein B-Natriuretic Peptide Vancomycin Trough Microbiology Microbiology Results: Microbiology 03/17/22 15:31 Blood Culture - Preliminary Blood - Venous No growth after 24 hours. 03/17/22 15:30 Blood Culture - Preliminary Blood - Venous No growth after 24 hours. Procedures Date of Service Date of Service: 03/19/22 Progress Note: A&P Assessment and plan (1) Cellulitis: Status: Acute Assessment and Plan: Cellulitis from leg edema,, stasis I have advised him to keep the left leg elevated as best as he can Continue antibiotics Has hypercapnic respiratory failure from obstructive sleep apnea Time Spent With Patient Time: Total time spent is greater than 50% in coordination of care (as documented) at patient's floor/unit and/or counseling patient: Quality Stroke Does the patient have a stroke diagnosis?: No VTE Prior VTE?: No VTE Risk Level:: Medical - moderate - high VTE Device Contraindication: N/A - Device Ordered VTE Drug Contraindication: N/A - Med Ordered
[2022-03-19 11:07] LABS: Glucose, Whole Blood 140 mg/dL (60-115)
--- NOTE | 2022-03-19 11:58 | PM.PNCARD ---
Subjective Subjective Date of Service: 03/19/22 <MICHAELA Holloway - Last Filed: 03/19/22 12:21> 03/19/22 <Rajendra Vega MD - Last Filed: 03/19/22 13:05> Principal diagnosis: Cellulitis, AV block, presumed MALDONADO, Morbid obesity, Fluid overload <MICHAELA Holloway - Last Filed: 03/19/22 12:21> Interval history: Seen at 0815. Today he reports not feeling much better that admission. His left lower leg is less painful but still swollen and red. He has shortness of breath when moving around. Breathing more comfortable when at rest. Slept with CPAP mask on. Does not use a mask at home and no prior diagnosis of MALDONADO. No chest pains, palpitations, dizziness. Has tight edema in both legs, up to thighs. Tele showing SR, during sleep hours there was brief second detree Type 1 rhythm noted - no pauses. Tells me he is not voiding much. <MICHAELA Holloway - Last Filed: 03/19/22 12:21> Review of Systems Review of Systems as above <MICHAELA Holloway - Last Filed: 03/19/22 12:21> Yes all other systems are reviewed and are negative <MICHAELA Holloway - Last Filed: 03/19/22 12:21> Physical Exam Vital Signs: Last Vital Signs Temp 97.4 F 03/19/22 08:00 Pulse 76 03/19/22 08:00 Resp 20 03/19/22 08:00 BP 128/73 03/19/22 08:00 Pulse Ox 91 L 03/19/22 08:00 O2 Del Method 03/19/22 08:00 O2 Flow Rate 4 03/19/22 02:37 BMI result Body Mass Index 52.7 <MICHAELA Holloway Last Filed: 03/19/22 12:21> Const Other: morbidly obese <MICHAELA Holloway - Last Filed: 03/19/22 12:21> General: cooperative, no acute distress, alert and awake <MICHAELA Holloway - Last Filed: 03/19/22 12:21> Orientation/consciousness: patient oriented x3 <Bhargavi QuinterosNYLAC - Last Filed: 03/19/22 12:21> Neck Other: difficult to assess for JVD due to his morbid obesity <Bhargavi QuinterosTEE-C - Last Filed: 03/19/22 12:21> Resp Effort & Inspection: normal respiratory effort and able to speak in complete sentences <Bhargavi QuinterosTEE-C - Last Filed: 03/19/22 12:21> Auscultation: no crackles, no rales, no rhonchi and wheezes (Bilateral expiratory wheezes, anteriorly and posteriorly) <Bhargavi QuinterosTEE-C - Last Filed: 03/19/22 12:21> Cardio Palpation: normal PMI <Bhargavi QuinterosTEE-C - Last Filed: 03/19/22 12:21> Rate: regular rate <Bhargavi BanegasTEE chun-C - Last Filed: 03/19/22 12:21> Rhythm: regular rhythm <Bhargavi Cuello TEE Quinteros-C - Last Filed: 03/19/22 12:21> Heart sounds: S1 normal heart sound present and S2 normal heart sound present <Bhargavi BanegasTEE chun-C - Last Filed: 03/19/22 12:21> GI Other: obese, round, firm, nontender <Bhargavi BanegasTEE chun-C - Last Filed: 03/19/22 12:21> Neuro General: patient oriented x3 <Bhargavi Cuello TEE Quinteros-C - Last Filed: 03/19/22 12:21> Extrem Other: tight pitting edema in legs. Left lower leg with cellulitis <Bhargavi Cuello TEE Quinteros-C - Last Filed: 03/19/22 12:21> Objective Labs and Meds Result diagrams: : 03/19/22 06:02 03/19/22 06:02 <Bhargavi Cuello TEE Quinteros-C - Last Filed: 03/19/22 12:21> Lab results: Laboratory Results - last 24 hr 03/18/22 03/18/22 03/18/22 14:59 14:59 16:13 WBC RBC Hgb Hct MCV MCH MCHC RDW Plt Count MPV Absolute Nucleated RBC Nucleated RBC % (auto) VBG pH VBG pCO2 VBG pO2 VBG HCO3 VBG O2 Saturation VBG Base Excess Sodium Potassium Chloride Carbon Dioxide Anion Gap BUN Creatinine Estim Creat Clear Calc Estimated GFR POC Glucose 146 H Random Glucose Calcium C-Reactive Protein B-Natriuretic Peptide 23 Vancomycin Trough 4.8 L 03/18/22 03/19/22 03/19/22 19:59 06:02 06:02 WBC 10.8 RBC 4.58 L Hgb 13.5 L Hct 43.6 MCV 95.2 MCH 29.5 MCHC 31.0 RDW 14.1 Plt Count 235 MPV 9.1 L Absolute Nucleated RBC 0.000 Nucleated RBC % (auto) 0.0 VBG pH VBG pCO2 VBG pO2 VBG HCO3 VBG O2 Saturation VBG Base Excess Sodium 140 Potassium 4.8 Chloride 98 Carbon Dioxide 35 H Anion Gap 12 BUN 14 Creatinine 0.80 Estim Creat Clear Calc 201.0 Estimated GFR > 60 POC Glucose 132 H Random Glucose 163 H Calcium 9.0 C-Reactive Protein 11.00 H B-Natriuretic Peptide Vancomycin Trough 03/19/22 03/19/22 03/19/22 06:08 07:33 10:56 WBC RBC Hgb Hct MCV MCH MCHC RDW Plt Count MPV Absolute Nucleated RBC Nucleated RBC % (auto) VBG pH 7.32 VBG pCO2 75 VBG pO2 59 VBG HCO3 39 H VBG O2 Saturation 86.0 VBG Base Excess 10.0 Sodium Potassium Chloride Carbon Dioxide Anion Gap BUN Creatinine Estim Creat Clear Calc Estimated GFR POC Glucose 147 H 140 H Random Glucose Calcium C-Reactive Protein B-Natriuretic Peptide Vancomycin Trough <MICHAELA Holloway - Last Filed: 03/19/22 12:21> Imaging Radiologist's impression: Impressions Chest X-Ray 03/18/22 11:54 IMPRESSION: Enlarged cardiac silhouette. <MICHAELA Holloway - Last Filed: 03/19/22 12:21> Progress Note: A&P Assessment and plan (1) Sinus pause: Status: Acute <MICHAELA Holloway - Last Filed: 03/19/22 12:21> Assessment and Plan: Admit with cellulitis. Hx of morbid obesity and asthma. Most likely has untreated obstructive sleep apnea. On tele monitor, during sleep 03/18 was noted to have a 7 sec pause. Also noted to have dropped beats, consistent with second degree heart block type 1, winkebach, during sleep as well. Last night he did wear a CPAP mask during sleep and no pauses were seen. Pulm consult note reviewed and pt will be further eval for ongoing CPAP use/ MALDONADO treatment. No indication for pacemaker. He has not has pauses or AV blocks noted while awake. Ongoing tele monitoring this admit. <MICHAELA Holloway - Last Filed: 03/19/22 12:21> Admit with cellulitis. Hx of morbid obesity and asthma. Most likely has untreated obstructive sleep apnea. On tele monitor, during sleep 03/18 was noted to have a 7 sec pause. Also noted to have dropped beats, consistent with second degree heart block type 1, winkebach, during sleep as well. Last night he did wear a CPAP mask during sleep and no pauses were seen. Pulm consult note reviewed and pt will be further eval for ongoing CPAP use/ MALDONADO treatment. No indication for pacemaker. He has not has pauses or AV blocks noted while awake. Ongoing tele monitoring this admit. Patient seen and examined. Case discussed with Bhargavi Quinteros. No significant pauses overnight. Has received empiric CPAP therapy which I think is helping. Will require sleep study as soon as possible and treatment of it. Discussed about aggressively losing weight. He understands and agrees. <Rajendra Vega MD - Last Filed: 03/19/22 13:05> (2) Hypoventilation associated with obesity: Status: Acute <MICHAELA Holloway - Last Filed: 03/19/22 12:21> Assessment and Plan: Echo this admit shows EF 60-65%, TDS, there is flattened septum in systole consistent with RV pressure overload. He likely has hypoventilation related to obesity and untreated MALDONADO which are contributing to Right HF. On exam he appears fluid overloaded with tight edema in his lower extremeties, up to thighs. BNP was normal at 23. He is being diuresed with IV lasix. Fluid balance this admit remains +. he admits to not urinating much. Will change diuretic to Bumex 1 mg IV BID. Continue strict I+O monitoring. Close monitoring of electrolyte and kidney function. Electrolyte replacement as warranted. CPAP mask use at night. O2 as needed to keep sat > 90%. <MICHAELA Holloway - Last Filed: 03/19/22 12:21> Echo this admit shows EF 60-65%, TDS, there is flattened septum in systole consistent with RV pressure overload. He likely has hypoventilation related to obesity and untreated MALDONADO which are contributing to Right HF. On exam he appears fluid overloaded with tight edema in his lower extremeties, up to thighs. BNP was normal at 23. He is being diuresed with IV lasix. Fluid balance this admit remains +. he admits to not urinating much. Will change diuretic to Bumex 1 mg IV BID. Continue strict I+O monitoring. Close monitoring of electrolyte and kidney function. Electrolyte replacement as warranted. CPAP mask use at night. O2 as needed to keep sat > 90%. Patient is not diuresed well. Intake and output chart not well maintained or not adequate diuresis. Switch to Bumex 1 mg IV b.i.d. with diuretic planned to monitor intake and output chart. Continue monitor renal function as well as electrolytes. Continue optimization of pulmonary function. Patient is wheezing and has bronchospastic airway disease. Continue CPAP therapy. High likelihood of underlying obesity hypoventilation syndrome closing right heart failure syndrome. Will continue to follow with you <Rajendra Vega MD - Last Filed: 03/19/22 13:05> (3) MALDONADO (obstructive sleep apnea): Status: Acute <MICHAELA Holloway - Last Filed: 03/19/22 12:21> (4) Respiratory failure with hypoxia and hypercapnia: Status: Acute <MICHAELA Holloway - Last Filed: 03/19/22 12:21> Assessment and Plan: <MICHAELA Holloway - Last Filed: 03/19/22 12:21> (5) Morbid obesity: Status: Acute <MICHAELA Holloway - Last Filed: 03/19/22 12:21> Time Spent With Patient Time: Total time spent is greater than 50% in coordination of care (as documented) at patient's floor/unit and/or counseling patient: 20 <MICHAELA Holloway - Last Filed: 03/19/22 12:21> Progress Note: Quality Stroke Does the patient have a stroke diagnosis?: No <MICHAELA Holloway - Last Filed: 03/19/22 12:21> Procedures Date of Service Date of Service: 03/19/22 <MICHAELA Holloway - Last Filed: 03/19/22 12:21>
--- NOTE | 2022-03-19 12:41 | P.PNIM_ITS ---
Subjective Subjective Date of Service: 03/19/22 Interval History: sinus pauses while asleep still quite swollen, not much UOP LLE quite red/swollen Review of Systems Review of Systems: Yes all other systems are reviewed and are negative Physical Exam Vital Signs: Vital Signs: Last Vital Signs Temp 97.4 F 03/19/22 12:00 Pulse 89 03/19/22 12:00 Resp 20 03/19/22 12:00 BP 131/63 03/19/22 12:00 Pulse Ox 99 03/19/22 12:00 O2 Del Method 03/19/22 12:00 O2 Flow Rate 5 03/19/22 12:00 BMI result Body Mass Index 52.7 Gen: in no acute distress HEENT: sclera anicteric, moist mucus membranes Neck: supple Lungs: diminished Heart: regular rate and rhythm, no murmurs Abd: soft, non-tender, non-distended, morbidly obese Ext: extensive well-demarcated erythema, induration, and warmth involving the right almazan and calf, no fluctuant collections of fluid; bilateraly pitting edema 2+ Skin: warm/well-perfused Neuro: alert and oriented x3, no focal findings Psych: appropriate affect Objective Data Active Medications Acetaminophen (Acetaminophen 325 Mg Tablet) 650 mg PO Q6H PRN PRN Reason: Pain, Mild (Pain Scale 1-3) Albuterol Sulfate (Albuterol Sulfate 90 Mcg 8 Gm Inhaler) 2 puff INHALE RQ4H PRN PRN Reason: shortness of breath Albuterol/Ipratropium (Albuterol/Iprat 2.5/0.5mg 3 Ml Ampul.Neb) 3 ml INHALE RQ4H PRN PRN Reason: shortness of breath/wheeze Bumetanide (Bumetanide 1 Mg/4 Ml Vial) 1 mg IVPUSH BID@0900,1700 [facility]; Protocol Dextrose (Dextrose 50 % 25 Gm/50 Ml Syringe) 25 gm IVPUSH Q15M PRN; Protocol PRN Reason: per Hypoglycemia Standing Ord. Enoxaparin Sodium (Enoxaparin Sodium 40 Mg/0.4 Ml Syringe) 40 mg SUBCUT Q24H [facility] Last Admin: 03/18/22 15:06 Dose: 40 mg Documented By: CJ Glucose (Glucose Gel 15 Gm Gel..Gram.) 15 gm PO Q15M PRN; Protocol PRN Reason: per Hypoglycemia Standing Ord. Clindamycin Phosphate (Cleocin) 600 mg in 50 mls @ 100 mls/hr IV Q8H [facility] Last Infusion: 03/19/22 09:01 Dose: 0 mls/hr Documented By: QUINTON-LINO Cefazolin Sodium 1 gm/ Sodium (Chloride) 50 mls @ 100 mls/hr IV Q8H [facility] Last Admin: 03/19/22 11:55 Dose: 100 mls/hr Documented By: QUINTON-LINO Vancomycin HCl 1,250 mg/ (Sodium Chloride) 250 mls @ 166.667 mls/hr IV Q8H [facility] Last Infusion: 03/19/22 09:57 Dose: 0 mls/hr Documented By: QUINTON-LINO Insulin Human Lispro (Insulin Lispro 100 Unit/Ml 3 Ml Vial) 0 unit SUBCUT QIDACHS [facility]; Protocol Last Admin: 03/19/22 11:25 Dose: Not Given Documented By: CJ Non-Admin Reason: poc oor Nicotine (Nicotine 14 Mg Patch.Td24) 14 mg TRANSDERMA DAILY [facility] Last Admin: 03/19/22 08:18 Dose: 14 mg Documented By: QUINTON-LINO Ondansetron HCl (Ondansetron Hcl 4 Mg/2 Ml Vial) 4 mg IVPUSH Q8H PRN PRN Reason: Nausea and Vomiting Sodium Chloride (0.9 % Sodium Chloride Flush 3 Ml Syringe) 3 ml IVFLUSH QSHIFT [facility] Last Admin: 03/19/22 07:11 Dose: Not Given Documented By: CJ Non-Admin Reason: assessed Labs CBC & Chem 7: 03/19/22 06:02 03/19/22 06:02 Labs: Laboratory Results - last 24 hr 03/18/22 03/18/22 03/18/22 14:59 14:59 16:13 MCV MCH MCHC RDW Plt Count MPV Absolute Nucleated RBC Nucleated RBC % (auto) VBG pH VBG pCO2 VBG pO2 VBG HCO3 VBG O2 Saturation VBG Base Excess Anion Gap Estim Creat Clear Calc Estimated GFR POC Glucose 146 H Random Glucose Calcium C-Reactive Protein B-Natriuretic Peptide 23 Vancomycin Trough 4.8 L 03/18/22 03/19/22 03/19/22 19:59 06:02 06:02 MCV 95.2 MCH 29.5 MCHC 31.0 RDW 14.1 Plt Count 235 MPV 9.1 L Absolute Nucleated RBC 0.000 Nucleated RBC % (auto) 0.0 VBG pH VBG pCO2 VBG pO2 VBG HCO3 VBG O2 Saturation VBG Base Excess Anion Gap 12 Estim Creat Clear Calc 201.0 Estimated GFR > 60 POC Glucose 132 H Random Glucose 163 H Calcium 9.0 C-Reactive Protein 11.00 H B-Natriuretic Peptide Vancomycin Trough 03/19/22 03/19/22 03/19/22 06:08 07:33 10:56 MCV MCH MCHC RDW Plt Count MPV Absolute Nucleated RBC Nucleated RBC % (auto) VBG pH 7.32 VBG pCO2 75 VBG pO2 59 VBG HCO3 39 H VBG O2 Saturation 86.0 VBG Base Excess 10.0 Anion Gap Estim Creat Clear Calc Estimated GFR POC Glucose 147 H 140 H Random Glucose Calcium C-Reactive Protein B-Natriuretic Peptide Vancomycin Trough TTE (03/18/22) 1. Technically extremely limited study due to body habitus ? ? 2.? Normal LV systolic function with possible pseudonormal ? ? ? filling pattern? 3.? Limited visualization of cardiac valves with no significant? abnormalities. ? 4.? RV systolic pressure could not be measured on this study ? ? Microbiology Microbiology Results: Microbiology 03/17/22 15:31 Blood Culture - Preliminary Blood - Venous No growth after 24 hours. 03/17/22 15:30 Blood Culture - Preliminary Blood - Venous No growth after 24 hours. Assessment and Plan (1) Respiratory failure with hypoxia and hypercapnia: Status: Acute (2) Hypoventilation associated with obesity: Status: Acute (3) MALDONADO (obstructive sleep apnea): Status: Acute (4) Morbid obesity: Status: Acute (5) Cellulitis: Status: Acute Plan hospital d#3 31yo M with morbid obesity, intermittent asthma, likely MALDONADO presenting with 1d of rapidly progressive erythema, induration, and warmth of the RLE and found to be septic due to cellultiis/erysipelas # cellulitis/erysipelas - d#3 clindamycin + cefazolin + vancomycin, follow BCx, not thought to have necrotizing infection, Surgery following, elevate leg as much as possible. ID consultation given suboptimal improvement # chronic hypoxic/hypercapneic respiratory failure - likely severe MALDONADO. Pulmonology consulted. overnight oximetry to qualify for home BiPAP. # R-sided HF - change IV furosemide to bumetanide. Cardiology following # mild intermittent asthma - prn albuterol HFA # new dx DM2, A1c 7.3 - correction-dose lispro, d/c on MTF # morbid obesity - will need outpt Bariatric and Sleep Medicine evaluations # VTE ppx - LMWH In my clinical judgment, the patient requires continued hospitalization for the following reasons: IV ABX, diuresis, hypoxia, hypercarbia Quality Stroke Does the patient have a stroke diagnosis?: No VTE Prior VTE?: No VTE Risk Level:: Medical - moderate - high VTE Device Contraindication: N/A - Device Ordered VTE Drug Contraindication: N/A - Med Ordered
--- NOTE | 2022-03-19 14:32 | MHC.CM.PN ---
PER MED ROUNDS, PT NOT YET MEDICALLY CLEARED FOR DC. DC PLAN REMAINS HOME WITH NO SERVICES VIA PRIVATE TRANSPORT
[2022-03-19] MEDS: Enoxaparin Sodium 40 MG/0.4 ML SYRINGE SUBCUT (15:20)
[2022-03-19 16:03] LABS: Vancomycin Trough 9.7 mcg/mL (10.0-20.0)
[2022-03-19 16:10] LABS: Glucose, Whole Blood 170 mg/dL (60-115)
--- NOTE | 2022-03-19 16:14 | HE.PHANOTE ---
Vancomycin Dosing Addendum Vancomycin trough 9.7..increasing dose to 1500 Q8h for predicted AUC of 535. Next trough 03/20/22 @1500
[2022-03-19] MEDS: vancomycin HCL 1,500 MG in 0.9 % Sodium Chloride 500 ML 333.33 MG IV (16:44)
[2022-03-19] MEDS: Insulin Lispro 100 UNIT/ML 3 ML VIAL SUBCUT ×2 (16:44→20:25)
[2022-03-19] MEDS: Bumetanide 1 MG/4 ML VIAL IVPUSH (16:45)
--- NOTE | 2022-03-19 18:12 | PC.NURSE ---
IV infiltrated in R hand. Clin sup and pharmacy notified. per pharmacy apply ice packs and elevate, monitor site. new iv placed in LUE. pt family at bedside. MD informed and educated/updated family and pt. poc maintained. pt showered, steady gait, lung sounds wheezy throughout. pt c/o SOB on exertion. safety and fall precautions in place. call rodriguez within reach
[2022-03-19 19:53] LABS: Glucose, Whole Blood 201 mg/dL (60-115)
[2022-03-20] VITALS (7 sets, daily range): BP systolic 140–183; BP diastolic 69–106; PULSE 83–106; RESP 18–20; TEMP 36.2–37.1; O2SAT 90–99
[2022-03-20] MEDS: Clindamycin Phosphate/D5W 600 MG/50 ML PIGGYBACK 100 MG IV ×3 (02:22→17:06)
[2022-03-20] MEDS: vancomycin HCL 1,500 MG in 0.9 % Sodium Chloride 500 ML 333.33 MG IV ×2 (02:54→10:35)
[2022-03-20 07:25] LABS: Creatinine Clr Calc Pharmacy 211.6; Estimated Glomerular Filt Rate > 60
[2022-03-20 07:48] LABS: Glucose, Whole Blood 121 mg/dL (60-115)
--- NOTE | 2022-03-20 09:09 | HE.PHANOTE ---
RE CONNIE CONTINUE CURRENT DOSE. SCR STABLE. NEXT TROUGH 03/20@1500
--- NOTE | 2022-03-20 09:16 | P.PNGS_ITS ---
Subjective Subjective Date of Service: 03/21/22 Interval history: patient says he feels okay says he has good range of motion of his foot on the left and able to walk on this does not think this is worse Physical Exam Vital Signs: Vital Signs: Last Vital Signs Temp 97.2 F 03/20/22 04:00 Pulse 94 03/20/22 04:00 Resp 18 03/20/22 04:00 BP 183/97 H 03/20/22 04:00 Pulse Ox 96 03/20/22 04:00 O2 Del Method 03/20/22 04:00 O2 Flow Rate 5 03/19/22 15:20 BMI result Body Mass Index 52.7 Const: Other: sitting up General: comfortable and no acute distress Resp: Effort & Inspection: normal respiratory effort Cardio: Rate: regular rate Extrem: Other: left lower leg still with edema cellulitic changes diffusely Objective Data Active Medications Acetaminophen (Acetaminophen 325 Mg Tablet) 650 mg PO Q6H PRN PRN Reason: Pain, Mild (Pain Scale 1-3) Albuterol Sulfate (Albuterol Sulfate 90 Mcg 8 Gm Inhaler) 2 puff INHALE RQ4H PRN PRN Reason: shortness of breath Albuterol/Ipratropium (Albuterol/Iprat 2.5/0.5mg 3 Ml Ampul.Neb) 3 ml INHALE RQ4H PRN PRN Reason: shortness of breath/wheeze Bumetanide (Bumetanide 1 Mg/4 Ml Vial) 1 mg IVPUSH BID@0900,1700 [facility]; Protocol Last Admin: 03/19/22 16:45 Dose: 1 mg Documented By: CJ Dextrose (Dextrose 50 % 25 Gm/50 Ml Syringe) 25 gm IVPUSH Q15M PRN; Protocol PRN Reason: per Hypoglycemia Standing Ord. Enoxaparin Sodium (Enoxaparin Sodium 40 Mg/0.4 Ml Syringe) 40 mg SUBCUT Q24H [facility] Last Admin: 03/19/22 15:20 Dose: 40 mg Documented By: CJ Glucose (Glucose Gel 15 Gm Gel..Gram.) 15 gm PO Q15M PRN; Protocol PRN Reason: per Hypoglycemia Standing Ord. Clindamycin Phosphate (Cleocin) 600 mg in 50 mls @ 100 mls/hr IV Q8H [facility] Last Infusion: 03/20/22 02:55 Dose: 0 mls/hr Documented By: ROSEANNA Cefazolin Sodium 1 gm/ Sodium (Chloride) 50 mls @ 100 mls/hr IV Q8H [facility] Last Infusion: 03/20/22 05:08 Dose: 0 mls/hr Documented By: MAIA Vancomycin HCl 1,500 mg/ (Sodium Chloride) 500 mls @ 333.333 mls/hr IV Q8H [facility] Last Infusion: 03/20/22 04:34 Dose: 0 mls/hr Documented By: MAIA Insulin Human Lispro (Insulin Lispro 100 Unit/Ml 3 Ml Vial) 0 unit SUBCUT QIDACHS [facility]; Protocol Last Admin: 03/20/22 08:44 Dose: Not Given Documented By: UDAY Non-Admin Reason: No Insulin Coverage Nicotine (Nicotine 14 Mg Patch.Td24) 14 mg TRANSDERMA DAILY [facility] Last Admin: 03/19/22 08:18 Dose: 14 mg Documented By: CJ Ondansetron HCl (Ondansetron Hcl 4 Mg/2 Ml Vial) 4 mg IVPUSH Q8H PRN PRN Reason: Nausea and Vomiting Sodium Chloride (0.9 % Sodium Chloride Flush 3 Ml Syringe) 3 ml IVFLUSH QSHIFT [facility] Last Admin: 03/19/22 20:25 Dose: 3 ml Documented By: MAIA Labs CBC & Chem 7: 03/21/22 06:44 03/21/22 06:44 Labs: Laboratory Results - last 24 hr 03/19/22 03/19/22 03/19/22 10:56 15:30 16:02 Estim Creat Clear Calc Estimated GFR POC Glucose 140 H 170 H Vancomycin Trough 9.7 L 03/19/22 03/20/22 03/20/22 19:46 06:31 07:42 Estim Creat Clear Calc 211.6 Estimated GFR > 60 POC Glucose 201 H 121 H Vancomycin Trough Microbiology Microbiology Results: Microbiology 03/17/22 15:31 Blood Culture - Preliminary Blood - Venous No growth after 48 hours. 03/17/22 15:30 Blood Culture - Preliminary Blood - Venous No growth after 48 hours. Procedures Date of Service Date of Service: 03/20/22 Progress Note: A&P Assessment and plan (1) Cellulitis: Status: Acute Assessment and Plan: cellulitis from leg edema continues to have difficulty redness patient admits he does not keep leg elevated recommend vascular consult as well; Doppler was negative for DVT emphasized to patient importance of keeping the leg elevated to decrease edema he looks well and comfortable otherwise Time Spent With Patient Time: Total time spent is greater than 50% in coordination of care (as documented) at patient's floor/unit and/or counseling patient: Quality Stroke Does the patient have a stroke diagnosis?: No VTE Prior VTE?: No VTE Risk Level:: Medical - moderate - high VTE Device Contraindication: N/A - Device Ordered VTE Drug Contraindication: N/A - Med Ordered
[2022-03-20] MEDS: Bumetanide 1 MG/4 ML VIAL IVPUSH ×2 (09:31→17:06)
[2022-03-20] MEDS: Nicotine 14 MG PATCH.TD24 TRANSDERMA (09:31)
[2022-03-20] MEDS: 0.9 % Sodium Chloride Flush 3 ML SYRINGE IVFLUSH ×3 (09:32→21:13)
--- NOTE | 2022-03-20 10:50 | PM.PNPUL ---
Subjective Subjective Date of Service: 03/20/22 Principal diagnosis: Cellulitis, AV block, presumed MALDONADO, Morbid obesity, Fluid overload Interval history: This 31 years old gentleman a case of morbid obesity and clinically has MALDONADO/hypoventilation syndrome. He is being treated for acute Cellulitis of the left leg. He is using CPAP at night, claims that his sleep is much better. His venous blood gas study is still abnormal with pCO2 of 75. Overnight oximetry recording, has shown that he still desaturates during the night, with O2 sat below 88%, 766 events. This should be repeated once again before his discharge. Objective Data Labs CBC & Chem 7: 03/19/22 06:02 03/20/22 06:31 Labs: Laboratory Results - last 24 hr 03/19/22 03/19/22 03/19/22 10:56 15:30 16:02 Creatinine Estim Creat Clear Calc Estimated GFR POC Glucose 140 H 170 H Vancomycin Trough 9.7 L 03/19/22 03/20/22 03/20/22 19:46 06:31 07:42 Creatinine 0.76 Estim Creat Clear Calc 211.6 Estimated GFR > 60 POC Glucose 201 H 121 H Vancomycin Trough Microbiology Microbiology Results: Microbiology 03/17/22 15:31 Blood - Venous Blood Culture - Preliminary No growth after 48 hours. 03/17/22 15:30 Blood - Venous Blood Culture - Preliminary No growth after 48 hours. Review of Systems Review of Systems Yes all other systems are reviewed and are negative Constitutional: Reports snoring Eyes: Reports no additional eye complaints Reports system reviewed and no additional complaints, except as documented Cardiovascular: Denies chest pain, Denies irregular heart rhythm, Reports leg edema (Chronic stasis edema) and Reports dyspnea on exertion Respiratory: Reports dyspnea on exertion, Reports snoring and Reports wheezing (Intermittent) Gastrointestinal: Reports no additional gastrointestinal complaints Genitourinary: Reports no additional male genitourinary complaints Musculoskeletal: Reports no additional musculoskeletal complaints Allergic/Immunologic: Reports wheezing (Intermittent) Physical Exam Vital Signs: Vital Signs: Last Vital Signs Temp 97.2 F 03/20/22 08:00 Pulse 84 03/20/22 08:00 Resp 20 03/20/22 08:00 BP 151/74 H 03/20/22 08:00 Pulse Ox 92 03/20/22 08:00 O2 Del Method 03/20/22 08:00 O2 Flow Rate 5 03/19/22 15:20 BMI result Body Mass Index 52.7 Const: Other: Morbidly obese with a round face General: comfortable, no acute distress, alert and awake Orientation/consciousness: patient oriented x3 HEENT: Other: Mallampati class 4 Head: Yes normal to inspection General nose exam: No nasal polyps present and No nasal discharge present Face and sinus: Yes sinuses nontender Mouth: oropharynx normal Throat: No posterior oropharynx normal (Very crowded and narrow) Eyes: General: appearance normal, both eyes and all related structures Neck: Neck: Yes normal visual inspection, Yes no lymphadenopathy, Yes trachea midline and Yes no JVD Thyroid: Thyroid normal Chest: Chest palpation & inspection: normal inspection of the chest, normal palpation of entire chest wall and no tenderness Resp: Other: Percussion note not perceptible because of thick chest wall. Breath sounds are distant over the basilar areas. No audible wheezes or crepitations. Cardio: Palpation: normal PMI Rate: regular rate Rhythm: regular rhythm Heart sounds: no gallops and no murmurs GI: Palpation (GI): Soft to palpation, nontender, No hepatosplenomegaly present, no masses and Other GI palpation findings present (Abdomen is obese and protuberant) Auscultation: normal bowel sounds Back/Spine/Pelvis: Thoracic/Lumbar Spine: thoracic and lumbar spine normal to inspection and thoraco-lumbar ROM limited Skin: General skin exam: rashes and/or lesions noted (Erythema of the left leg) Neuro: General: patient oriented x3 and no focal motor deficits Cranial nerves: Yes CN's II-XII intact bilaterally Extrem: General: Yes normal to inspection, Yes no calf tenderness, Yes edema (Massive edema of the legs) and Yes venous stasis dermatitis Psych: Appearance: grossly normal and well kempt Speech and movement: Normal speech and movement present Procedures Date of Service Date of Service: 03/20/22 Assessment and Plan Assessment and plan (1) Morbid obesity: Status: Acute (2) MALDONADO (obstructive sleep apnea): Status: Acute (3) Hypoventilation associated with obesity: Status: Acute (4) Respiratory failure with hypoxia and hypercapnia: Status: Acute Plan This patient being treated with CPAP at night, subjectively feels much better, and sleeps good. Because of continued hypercapnia, with pCO2 of 72 , and his desaturations at night, He would qualify for use of bilevel CPAP( BIPAP ) I recommend that we use BiPAP with setting of 20/10 cms And later on as outpatient he may need to an in-lab CPAP titration, Patient needs to be on an aggressive weight reduction program, which should be started as outpatient. Time Spent With Patient Time: Total time spent is greater than 50% in coordination of care (as documented) at patient's floor/unit and/or counseling patient: Progress Note: Quality Stroke Does the patient have a stroke diagnosis?: No
--- NOTE | 2022-03-20 10:51 | P.PNIM_ITS ---
Subjective Subjective Date of Service: 03/20/22 Interval History: Still quite edematous. UOP inaccurate, though pt notes bumetanide is inducing more diuresis than the furosemide. LLE still quite red Review of Systems Review of Systems: Yes all other systems are reviewed and are negative Physical Exam Vital Signs: Vital Signs: Last Vital Signs Temp 97.2 F 03/20/22 08:00 Pulse 84 03/20/22 08:00 Resp 20 03/20/22 08:00 BP 151/74 H 03/20/22 08:00 Pulse Ox 92 03/20/22 08:00 O2 Del Method 03/20/22 08:00 O2 Flow Rate 5 03/19/22 15:20 BMI result Body Mass Index 52.7 Gen: in no acute distress HEENT: sclera anicteric, moist mucus membranes Neck: supple Lungs: diminished Heart: regular rate and rhythm, no murmurs Abd: soft, non-tender, non-distended, morbidly obese Ext: extensive erythema, induration, and warmth involving the right almazan and calf, no fluctuant collections of fluid; bilateral pitting edema 2+ of legs Skin: warm/well-perfused Neuro: alert and oriented x3, no focal findings Psych: appropriate affect Objective Data Active Medications Acetaminophen (Acetaminophen 325 Mg Tablet) 650 mg PO Q6H PRN PRN Reason: Pain, Mild (Pain Scale 1-3) Albuterol Sulfate (Albuterol Sulfate 90 Mcg 8 Gm Inhaler) 2 puff INHALE RQ4H PRN PRN Reason: shortness of breath Albuterol/Ipratropium (Albuterol/Iprat 2.5/0.5mg 3 Ml Ampul.Neb) 3 ml INHALE RQ4H PRN PRN Reason: shortness of breath/wheeze Bumetanide (Bumetanide 1 Mg/4 Ml Vial) 1 mg IVPUSH BID@0900,1700 [facility]; Protocol Last Admin: 03/20/22 09:31 Dose: 1 mg Documented By: UDAY Dextrose (Dextrose 50 % 25 Gm/50 Ml Syringe) 25 gm IVPUSH Q15M PRN; Protocol PRN Reason: per Hypoglycemia Standing Ord. Enoxaparin Sodium (Enoxaparin Sodium 40 Mg/0.4 Ml Syringe) 40 mg SUBCUT Q24H [facility] Last Admin: 03/19/22 15:20 Dose: 40 mg Documented By: QUINTON-AARONFA Glucose (Glucose Gel 15 Gm Gel..Gram.) 15 gm PO Q15M PRN; Protocol PRN Reason: per Hypoglycemia Standing Ord. Clindamycin Phosphate (Cleocin) 600 mg in 50 mls @ 100 mls/hr IV Q8H [facility] Last Infusion: 03/20/22 10:39 Dose: 100 mls/hr Documented By: RISA Cefazolin Sodium 1 gm/ Sodium (Chloride) 50 mls @ 100 mls/hr IV Q8H [facility] Last Infusion: 03/20/22 05:08 Dose: 0 mls/hr Documented By: MAIA Vancomycin HCl 1,500 mg/ (Sodium Chloride) 500 mls @ 333.333 mls/hr IV Q8H [facility] Last Admin: 03/20/22 10:35 Dose: 333.33 mls/hr Documented By: RISA Insulin Human Lispro (Insulin Lispro 100 Unit/Ml 3 Ml Vial) 0 unit SUBCUT QIDACHS [facility]; Protocol Last Admin: 03/20/22 08:44 Dose: Not Given Documented By: UDAY Non-Admin Reason: No Insulin Coverage Nicotine (Nicotine 14 Mg Patch.Td24) 14 mg TRANSDERMA DAILY [facility] Last Admin: 03/20/22 09:31 Dose: 14 mg Documented By: UDAY Ondansetron HCl (Ondansetron Hcl 4 Mg/2 Ml Vial) 4 mg IVPUSH Q8H PRN PRN Reason: Nausea and Vomiting Sodium Chloride (0.9 % Sodium Chloride Flush 3 Ml Syringe) 3 ml IVFLUSH QSHIFT [facility] Last Admin: 03/20/22 09:32 Dose: 3 ml Documented By: UDAY Labs CBC & Chem 7: 03/19/22 06:02 03/20/22 06:31 Labs: Laboratory Results - last 24 hr 03/19/22 03/19/22 03/19/22 10:56 15:30 16:02 Estim Creat Clear Calc Estimated GFR POC Glucose 140 H 170 H Vancomycin Trough 9.7 L 03/19/22 03/20/22 03/20/22 19:46 06:31 07:42 Estim Creat Clear Calc 211.6 Estimated GFR > 60 POC Glucose 201 H 121 H Vancomycin Trough Microbiology Microbiology Results: Microbiology 03/17/22 15:31 Blood Culture - Preliminary Blood - Venous No growth after 48 hours. 03/17/22 15:30 Blood Culture - Preliminary Blood - Venous No growth after 48 hours. Assessment and Plan (1) Respiratory failure with hypoxia and hypercapnia: Status: Acute (2) Hypoventilation associated with obesity: Status: Acute (3) MALDONADO (obstructive sleep apnea): Status: Acute (4) Morbid obesity: Status: Acute (5) Cellulitis: Status: Acute Plan hospital d#4 31yo M with morbid obesity, intermittent asthma, likely MALDONADO presenting with 1d of rapidly progressive erythema, induration, and warmth of the RLE and found to be septic due to cellulitis/erysipelas # cellulitis/erysipelas - d#4 clindamycin + cefazolin + vancomycin, BCx negative, Surgery following and pt not thought to have necrotizing infection. ID consultation pending # chronic hypoxic/hypercapneic respiratory failure - likely severe MALDONADO. Pulmonology consulted. overnight oximetry tonight to qualify for home CPAP. # acute R-sided HF - changed IV furosemide to bumetanide, got 1st dose yesterday evening. continue diuresis. Cardiology following # new dx DM2, A1c 7.3 - correction-dose lispro, d/c on MTF # mild intermittent asthma - prn albuterol HFA # morbid obesity - consider outpt Bariatric evaluation # VTE ppx - LMWH In my clinical judgment, the patient requires continued hospitalization for the following reasons: IV ABX, diuresis Quality Stroke Does the patient have a stroke diagnosis?: No VTE Prior VTE?: No VTE Risk Level:: Medical - moderate - high VTE Device Contraindication: N/A - Device Ordered VTE Drug Contraindication: N/A - Med Ordered
[2022-03-20 11:21] LABS: Glucose, Whole Blood 128 mg/dL (60-115)
--- NOTE | 2022-03-20 13:54 | PM.PNCARD ---
Subjective Subjective Date of Service: 03/20/22 <MICHAELA Holloway - Last Filed: 03/20/22 14:27> 03/20/22 <Rajendra Vega MD - Last Filed: 03/20/22 15:19> Principal diagnosis: Cellulitis, AV block, presumed MALDONADO, Morbid obesity, Fluid overload <MICHAELA Holloway - Last Filed: 03/20/22 14:27> Interval history: Seen at 1010. Today he reports that he is starting to feel better. He slept well with the CPAP. He reports that his breathing is improving. When he is sitting up, he is feeling more awake and alert. He denies chest pains, palpitations, dizziness. His Left lower leg is still red and both legs remain swollen. Tele showed 7 sec pause when sleeping 1103 yest am. He was not wearing mask. Tele stable SR during night, while wearing CPAP. <MICHAELA Holloway - Last Filed: 03/20/22 14:27> Review of Systems Review of Systems as above <MICHAELA Holloway - Last Filed: 03/20/22 14:27> Yes all other systems are reviewed and are negative <MICHAELA Holloway - Last Filed: 03/20/22 14:27> Physical Exam Vital Signs: Last Vital Signs Temp 97.2 F 03/20/22 11:51 Pulse 83 03/20/22 11:51 Resp 20 03/20/22 11:51 BP 147/75 H 03/20/22 11:51 Pulse Ox 99 03/20/22 11:51 O2 Del Method 03/20/22 11:51 O2 Flow Rate 6 03/20/22 11:51 BMI result Body Mass Index 52.7 <MICHAELA Holloway - Last Filed: 03/20/22 14:27> Const Other: Morbidly obese <MICHAELA Holloway - Last Filed: 03/20/22 14:27> General: cooperative, comfortable and no acute distress <MICHAELA Holloway - Last Filed: 03/20/22 14:27> Orientation/consciousness: patient oriented x3 <MICHAELA Holloway - Last Filed: 03/20/22 14:27> Neck Other: obese, unable to accurately assess for JVD <Bhargavi Neli CERT[employer]IED NURSES' AIDE-C - Last Filed: 03/20/22 14:27> Neck: Yes normal visual inspection <[facility]argavi Quinteros [facility] - Last Filed: 03/20/22 14:27> Resp Effort & Inspection: normal respiratory effort <Bhargavi Quinteros [facility] - Last Filed: 03/20/22 14:27> Auscultation: clear to auscultation bilaterally, no crackles, no rales, no rhonchi and no wheezes <Bhargavi Neli CERTIFIED NURSES' AIDE-C - Last Filed: 03/20/22 14:27> Cardio Rate: regular rate <Bhargavi Neli [facility] - Last Filed: 03/20/22 14:27> Rhythm: regular rhythm <Bhargavi Quinteros [facility] - Last Filed: 03/20/22 14:27> Heart sounds: S1 normal heart sound present, S2 normal heart sound present, no gallops, no murmurs and no rubs <Bhargavi Neli CERTIFIED NURSES' AIDE-C - Last Filed: 03/20/22 14:27> GI Other: obese, round, semifirm, nontender <Bhargavi Neli [facility] - Last Filed: 03/20/22 14:27> Neuro General: patient oriented x3 <Bhargavi Quinteros [facility] - Last Filed: 03/20/22 14:27> Extrem Other: tight pitting edema in legs, to thighs, Redness left lower leg from knee to ankle <Bhargavi Neli [facility] - Last Filed: 03/20/22 14:27> Psych Appearance: grossly normal <Bhargavi Quinteros CERTIFIED NURSES' AIDE-C - Last Filed: 03/20/22 14:27> Mental Status: mental status grossly normal <Bhargavi Neli CERTIFIED NURSES' AIDE-C - Last Filed: 03/20/22 14:27> Objective Labs and Meds Result diagrams: : 03/19/22 06:02 03/20/22 06:31 <Bhargavi Quinteros CERTIFIED NURSES' AIDE-C - Last Filed: 03/20/22 14:27> Lab results: Laboratory Results - last 24 hr 03/19/22 03/19/22 03/19/22 15:30 16:02 19:46 Creatinine Estim Creat Clear Calc Estimated GFR POC Glucose 170 H 201 H Vancomycin Trough 9.7 L 03/20/22 03/20/22 03/20/22 06:31 07:42 11:07 Creatinine 0.76 Estim Creat Clear Calc 211.6 Estimated GFR > 60 POC Glucose 121 H 128 H Vancomycin Trough <MICHAELA Holloway - Last Filed: 03/20/22 14:27> Progress Note: A&P Assessment and plan (1) Sinus pause: Status: Acute <MICHAELA Holloway - Last Filed: 03/20/22 14:27> Assessment and Plan: On tele monitor, 03/18 and again 03/19 he was noted to have 7 sec pauses during sleep. Also noted to have dropped beats, consistent with second degree heart block type 1, winkebach, during sleep. He has been evaluated by pulmonary and mostly likely has untreated obstructive sleep apnea. For the last 2 nights he has slept with CPAP mask on and shown to have improvement in heart rhythm. No pauses or heart block during sleep last night. Pt is being evaluated for by pulmonary for ongoing CPAP use/ MALDONADO treatment. No indication for pacemaker. He has not has pauses or AV blocks noted while awake. Ongoing tele monitoring this admit. <MICHAELA Holloway - Last Filed: 03/20/22 14:27> On tele monitor, 03/18 and again 03/19 he was noted to have 7 sec pauses during sleep. Also noted to have dropped beats, consistent with second degree heart block type 1, winkebach, during sleep. He has been evaluated by pulmonary and mostly likely has untreated obstructive sleep apnea. For the last 2 nights he has slept with CPAP mask on and shown to have improvement in heart rhythm. No pauses or heart block during sleep last night. Pt is being evaluated for by pulmonary for ongoing CPAP use/ MALDONADO treatment. No indication for pacemaker. He has not has pauses or AV blocks noted while awake. Ongoing tele monitoring this admit. Patient seen and examined. Case discussed with Bhargavi Quinteros. Patient again at 1 episode of 2nd pause with advanced AV block while he was sleeping and not wearing his CPAP. Recommend strongly to continue to wear CPAP. With wearing CPAP he says he is feeling a lot better. <Rajendra Vega MD - Last Filed: 03/20/22 15:19> (2) Hypoventilation associated with obesity: Status: Acute <MICHAELA Holloway - Last Filed: 03/20/22 14:27> Assessment and Plan: Echo this admit shows EF 60-65%, TDS, there is flattened septum in systole consistent with RV pressure overload. He likely has hypoventilation related to obesity and untreated MALDONADO which are contributing to Right HF. He initially was on IV lasix and not diuresing well. Yesterday he was changed to Bumex 1 mg IV BID. He reports increased urination since that time. He continues to appear fluid overloaded with tight edema in his lower extremeties, up to thighs. BNP was normal at 23. Continue strict I+O monitoring. Close monitoring of electrolyte and kidney function. Electrolyte replacement as warranted. CPAP mask use at night. O2 as needed to keep sat > 90%. We will follow <MICHAELA Holloway - Last Filed: 03/20/22 14:27> Echo this admit shows EF 60-65%, TDS, there is flattened septum in systole consistent with RV pressure overload. He likely has hypoventilation related to obesity and untreated MALDONADO which are contributing to Right HF. He initially was on IV lasix and not diuresing well. Yesterday he was changed to Bumex 1 mg IV BID. He reports increased urination since that time. He continues to appear fluid overloaded with tight edema in his lower extremeties, up to thighs. BNP was normal at 23. Continue strict I+O monitoring. Close monitoring of electrolyte and kidney function. Electrolyte replacement as warranted. CPAP mask use at night. O2 as needed to keep sat > 90%. We will follow Patient seen examined. His oxygen saturation breathing is significantly improved with IV Bumex drip continue the same. Strict intake and output chart needs to be pursued. Continue monitor renal function replace electrolytes as needed. Continue CPAP therapy. Continue pulmonary optimization. Will continue to follow with you <Rajendra Vega MD - Last Filed: 03/20/22 15:19> (3) MALDONADO (obstructive sleep apnea): Status: Acute <MICHAELA Holloway - Last Filed: 03/20/22 14:27> (4) Respiratory failure with hypoxia and hypercapnia: Status: Acute <MICHAELA Holloway - Last Filed: 03/20/22 14:27> Assessment and Plan: <MICHAELA Holloway - Last Filed: 03/20/22 14:27> (5) Morbid obesity: Status: Acute <MICHAELA Holloway - Last Filed: 03/20/22 14:27> Time Spent With Patient Time: Total time spent is greater than 50% in coordination of care (as documented) at patient's floor/unit and/or counseling patient: 22 <MICHAELA Holloway - Last Filed: 03/20/22 14:27> Progress Note: Quality Stroke Does the patient have a stroke diagnosis?: No <MICHAELA Holloway - Last Filed: 03/20/22 14:27> Procedures Date of Service Date of Service: 03/20/22 <MICHAELA Holloway - Last Filed: 03/20/22 14:27>
--- NOTE | 2022-03-20 14:38 | W.PM.IDCN ---
History of Present Illness Data of Consult Service Date: 03/20/22 Requesting physician: Catherine Duarte Primary Care Provider: Unknown Physician HPI Reason for consult: cellulitis He presents with one day fever and chills to 101. He has left leg hot and red. He denies tinea pedis or injury. Review of Systems Review of Systems: Yes all other systems are reviewed and are negative PMFSH Past Medical History Medical History Mild intermittent asthma Morbid obesity Family History Family History Other Diabetes Family history: reviewed and not pertinent Social History Social History Household Members: Family Housing: House Do you presently have visiting nurse or other home services: No Patient Tobacco Use Status: Current everyday Tobacco user Tobacco use type: Cigarette service: No Meds Allergies Allergy/AdvReac Type Severity Reaction Status Date / Time acetaminophen [From VICODIN] Allergy Unknown HIVES Verified 03/17/22 17:55 tramadol [TRAMADOL] Allergy Unknown HIVES Verified 03/17/22 17:55 VOMITING From FLEXERIL Allergy Unknown HIVES Uncoded 06/13/20 15:54 From VICODIN Allergy Unknown HIVES Uncoded 06/13/20 15:54 IVORY SOAP Allergy Unknown Hives Uncoded 03/17/22 17:55 Active Medications: Current Medications Acetaminophen (Acetaminophen 325 Mg Tablet) 650 mg PO Q6H PRN PRN Reason: Pain, Mild (Pain Scale 1-3) Albuterol Sulfate (Albuterol Sulfate 90 Mcg 8 Gm Inhaler) 2 puff INHALE RQ4H PRN PRN Reason: shortness of breath Albuterol/Ipratropium (Albuterol/Iprat 2.5/0.5mg 3 Ml Ampul.Neb) 3 ml INHALE RQ4H PRN PRN Reason: shortness of breath/wheeze Bumetanide (Bumetanide 1 Mg/4 Ml Vial) 1 mg IVPUSH BID@0900,1700 [facility]; Protocol Last Admin: 03/20/22 09:31 Dose: 1 mg Dextrose (Dextrose 50 % 25 Gm/50 Ml Syringe) 25 gm IVPUSH Q15M PRN; Protocol PRN Reason: per Hypoglycemia Standing Ord. Enoxaparin Sodium (Enoxaparin Sodium 40 Mg/0.4 Ml Syringe) 40 mg SUBCUT Q24H [facility] Last Admin: 03/19/22 15:20 Dose: 40 mg Glucose (Glucose Gel 15 Gm Gel..Gram.) 15 gm PO Q15M PRN; Protocol PRN Reason: per Hypoglycemia Standing Ord. Clindamycin Phosphate (Cleocin) 600 mg in 50 mls @ 100 mls/hr IV Q8H [facility] Last Infusion: 03/20/22 10:39 Dose: Infused Cefazolin Sodium 1 gm/ Sodium (Chloride) 50 mls @ 100 mls/hr IV Q8H [facility] Last Infusion: 03/20/22 13:40 Dose: Infused Vancomycin HCl 1,500 mg/ (Sodium Chloride) 500 mls @ 333.333 mls/hr IV Q8H [facility] Last Infusion: 03/20/22 13:03 Dose: Infused Insulin Human Lispro (Insulin Lispro 100 Unit/Ml 3 Ml Vial) 0 unit SUBCUT QIDACHS [facility]; Protocol Last Admin: 03/20/22 11:30 Dose: Not Given Nicotine (Nicotine 14 Mg Patch.Td24) 14 mg TRANSDERMA DAILY [facility] Last Admin: 03/20/22 09:31 Dose: 14 mg Ondansetron HCl (Ondansetron Hcl 4 Mg/2 Ml Vial) 4 mg IVPUSH Q8H PRN PRN Reason: Nausea and Vomiting Sodium Chloride (0.9 % Sodium Chloride Flush 3 Ml Syringe) 3 ml IVFLUSH QSHIFT [facility] Last Admin: 03/20/22 09:32 Dose: 3 ml Home Medications Medication Instructions Recorded Confirmed Last Taken Type No Known Home Meds 03/17/22 03/17/22 Unknown History Physical Exam Vital Signs: Vital Signs: Last Vital Signs Temp 97.2 F 03/20/22 11:51 Pulse 83 03/20/22 11:51 Resp 20 03/20/22 11:51 BP 147/75 H 03/20/22 11:51 Pulse Ox 99 03/20/22 11:51 O2 Del Method 03/20/22 11:51 O2 Flow Rate 6 03/20/22 11:51 BMI result Body Mass Index 52.7 Const: General: cooperative Eyes: General: appearance normal, both eyes and all related structures Resp: Effort & Inspection: normal respiratory effort Cardio: Rate: regular rate Rhythm: regular rhythm GI: Palpation (GI): Soft to palpation and nontender Extrem: Other: hot red leg area Results Labs CBC & Chem 7: 03/19/22 06:02 03/20/22 06:31 Labs: BMP 03/20/22 06:31 Creatinine 0.76 Microbiology Microbiology Results: Microbiology 03/17/22 15:31 Blood - Venous Blood Culture - Preliminary No growth after 48 hours. 03/17/22 15:30 Blood - Venous Blood Culture - Preliminary No growth after 48 hours. Assessment and Plan (1) Cellulitis: Status: Acute nonpurulent,likely strep possible staph (2) Morbid obesity: Status: Acute Plan would continue Clindamycin and Vancomycin Not bacteremic with MSSA so stop Kefzol Possible Pseudomonas if not better Levaquin
[2022-03-20 15:33] LABS: Vancomycin Trough 17.1 mcg/mL (10.0-20.0)
[2022-03-20 15:57] LABS: Glucose, Whole Blood 132 mg/dL (60-115)
[2022-03-20] MEDS: Enoxaparin Sodium 40 MG/0.4 ML SYRINGE SUBCUT (17:06)
[2022-03-20] MEDS: vancomycin HCL 1,250 MG in 0.9 % Sodium Chloride 250 ML 166.67 MG IV (17:40)
[2022-03-20 20:01] LABS: Glucose, Whole Blood 166 mg/dL (60-115)
[2022-03-20] MEDS: Insulin Lispro 100 UNIT/ML 3 ML VIAL SUBCUT (21:13)
[2022-03-20] MEDS: Acetaminophen 325 MG TABLET 650 MG PO (21:13)
[2022-03-21] VITALS (7 sets, daily range): BP systolic 118–145; BP diastolic 59–72; PULSE 84–98; RESP 18–20; TEMP 36.4–37; O2SAT 90–97
[2022-03-21] MEDS: Nicotine Polacrilex 2 MG GUM BUCCAL (00:32)
[2022-03-21] MEDS: Clindamycin Phosphate/D5W 600 MG/50 ML PIGGYBACK 100 MG IV ×3 (00:32→16:58)
[2022-03-21] MEDS: vancomycin HCL 1,250 MG in 0.9 % Sodium Chloride 250 ML 166.67 MG IV ×3 (01:06→17:51)
[2022-03-21 07:13] LABS: Hematocrit 44.3 % (42.0-52.0); Hemoglobin 13.7 g/dl (14.0-18.0); Mean Corpuscular HGB Conc 30.9 g/dl (31.0-36.0); Mean Corpuscular Volume 93.7 fL (80.0-98.0); Mean Platelet Volume 8.9 fL (9.4-12.4); Platelet Count 248 X10*3/uL (160-400); Red Blood Count 4.73 X10*6/uL (4.60-5.80); Red Cell Distribution Width 13.7 % (11.0-16.0); White Blood Count 8.1 X10*3/uL (4.8-10.8)
[2022-03-21 07:31] LABS: Anion Gap 13 (12-20); Blood Urea Nitrogen 13 mg/dL (9-16); C Reactive Protein 6.34 mg/dL (< or = 0.50); Calcium 9.5 mg/dL (8.4-10.2); Carbon Dioxide 35 mmol/L (22-29); Chloride 96 mmol/L (96-108); Estimated Glomerular Filt Rate > 60; Glucose Random 157 mg/dL (60-115); Magnesium 2.3 mg/dL (1.6-2.6); Potassium 4.6 mmol/L (3.3-5.1); Sodium 139 mmol/L (135-145)
[2022-03-21 07:35] LABS: B Type Natriuretic Peptide 18 pg/mL (<100)
[2022-03-21 07:57] LABS: Glucose, Whole Blood 160 mg/dL (60-115)
[2022-03-21] MEDS: 0.9 % Sodium Chloride Flush 3 ML SYRINGE IVFLUSH ×3 (08:18→19:58)
[2022-03-21] MEDS: Nicotine 14 MG PATCH.TD24 TRANSDERMA (08:18)
[2022-03-21] MEDS: Insulin Lispro 100 UNIT/ML 3 ML VIAL SUBCUT ×2 (08:19→16:57)
[2022-03-21] MEDS: Bumetanide 1 MG/4 ML VIAL IVPUSH ×2 (08:20→16:57)
[2022-03-21] MEDS: Acetaminophen 325 MG TABLET 650 MG PO (08:34)
--- NOTE | 2022-03-21 09:56 | PM.PNGS ---
Subjective Subjective Date of Service: 03/27/22 Interval history: pt says his leg subjectively feels better able to walk on this says he is able to move the foot better Physical Exam Vital Signs: Vital Signs: Last Vital Signs Temp 98.6 F 03/21/22 07:19 Pulse 84 03/21/22 07:19 Resp 20 03/21/22 07:19 BP 145/70 H 03/21/22 07:19 Pulse Ox 94 03/21/22 07:19 O2 Del Method 03/21/22 07:19 O2 Flow Rate 6 03/20/22 11:51 BMI result Body Mass Index 52.7 Const: General: comfortable and no acute distress Resp: Effort & Inspection: normal respiratory effort Cardio: Rate: regular rate Extrem: Other: diffuse cellulitis, left leg from below the knee distally, with edema Objective Data Active Medications Acetaminophen (Acetaminophen 325 Mg Tablet) 650 mg PO Q6H PRN PRN Reason: Pain, Mild (Pain Scale 1-3) Last Admin: 03/21/22 08:34 Dose: 650 mg Documented By: IRENA Albuterol Sulfate (Albuterol Sulfate 90 Mcg 8 Gm Inhaler) 2 puff INHALE RQ4H PRN PRN Reason: shortness of breath Albuterol/Ipratropium (Albuterol/Iprat 2.5/0.5mg 3 Ml Ampul.Neb) 3 ml INHALE RQ4H PRN PRN Reason: shortness of breath/wheeze Bumetanide (Bumetanide 1 Mg/4 Ml Vial) 1 mg IVPUSH BID@0900,1700 [facility]; Protocol Last Admin: 03/21/22 08:20 Dose: 1 mg Documented By: IRENA Dextrose (Dextrose 50 % 25 Gm/50 Ml Syringe) 25 gm IVPUSH Q15M PRN; Protocol PRN Reason: per Hypoglycemia Standing Ord. Enoxaparin Sodium (Enoxaparin Sodium 40 Mg/0.4 Ml Syringe) 40 mg SUBCUT Q24H [facility] Last Admin: 03/20/22 17:06 Dose: 40 mg Documented By: UDAY Glucose (Glucose Gel 15 Gm Gel..Gram.) 15 gm PO Q15M PRN; Protocol PRN Reason: per Hypoglycemia Standing Ord. Clindamycin Phosphate (Cleocin) 600 mg in 50 mls @ 100 mls/hr IV Q8H [facility] Last Infusion: 03/21/22 09:07 Dose: 100 mls/hr Documented By: IRENA Vancomycin HCl 1,250 mg/ (Sodium Chloride) 250 mls @ 166.667 mls/hr IV Q8H [facility] Last Admin: 03/21/22 09:11 Dose: 166.67 mls/hr Documented By: IRENA Insulin Human Lispro (Insulin Lispro 100 Unit/Ml 3 Ml Vial) 0 unit SUBCUT QIDACHS [facility]; Protocol Last Admin: 03/21/22 08:19 Dose: 2 unit Documented By: IRENA Nicotine (Nicotine 14 Mg Patch.Td24) 14 mg TRANSDERMA DAILY [facility] Last Admin: 03/21/22 08:18 Dose: 14 mg Documented By: IRENA Nicotine Polacrilex (Nicotine Polacrilex 2 Mg Gum) 2 mg BUCCAL Q2H PRN PRN Reason: Nicotine Cravings Last Admin: 03/21/22 00:32 Dose: 2 mg Documented By: KALINA Ondansetron HCl (Ondansetron Hcl 4 Mg/2 Ml Vial) 4 mg IVPUSH Q8H PRN PRN Reason: Nausea and Vomiting Sodium Chloride (0.9 % Sodium Chloride Flush 3 Ml Syringe) [facility] Last Admin: 03/21/22 08:18 Dose: 3 ml Documented By: IRENA Labs CBC & Chem 7: 03/23/22 05:41 03/23/22 05:41 Labs: Laboratory Results - last 24 hr 03/20/22 03/20/22 03/20/22 11:07 15:03 15:30 MCV MCH MCHC RDW Plt Count MPV Absolute Nucleated RBC Nucleated RBC % (auto) Anion Gap Estim Creat Clear Calc Estimated GFR POC Glucose 128 H 132 H Random Glucose Calcium Magnesium C-Reactive Protein B-Natriuretic Peptide Vancomycin Trough 17.1 03/20/22 03/21/22 03/21/22 19:38 06:44 06:44 MCV 93.7 MCH 29.0 MCHC 30.9 L RDW 13.7 Plt Count 248 MPV 8.9 L Absolute Nucleated RBC 0.000 Nucleated RBC % (auto) 0.0 Anion Gap 13 Estim Creat Clear Calc 201.0 Estimated GFR > 60 POC Glucose 166 H Random Glucose 157 H Calcium 9.5 Magnesium 2.3 C-Reactive Protein 6.34 H B-Natriuretic Peptide Vancomycin Trough 03/21/22 03/21/22 06:44 07:21 MCV MCH MCHC RDW Plt Count MPV Absolute Nucleated RBC Nucleated RBC % (auto) Anion Gap Estim Creat Clear Calc Estimated GFR POC Glucose 160 H Random Glucose Calcium Magnesium C-Reactive Protein B-Natriuretic Peptide 18 Vancomycin Trough Procedures Date of Service Date of Service: 03/21/22 Progress Note: A&P Assessment and plan (1) Cellulitis: Status: Acute Assessment and Plan: Still with cellulitic changes and edema of the left lower leg edema likely from right sided HF as per Medical service emphasized leg elevation antibiotics no induration or fluctuance sensory/ motor intact Time Spent With Patient Time: Total time spent is greater than 50% in coordination of care (as documented) at patient's floor/unit and/or counseling patient: Quality Stroke Does the patient have a stroke diagnosis?: No VTE Prior VTE?: No VTE Risk Level:: Medical - moderate - high VTE Device Contraindication: N/A - Device Ordered VTE Drug Contraindication: N/A - Med Ordered
[2022-03-21 11:26] LABS: Glucose, Whole Blood 121 mg/dL (60-115)
--- NOTE | 2022-03-21 12:46 | HO.PM.IMPN ---
Subjective Subjective Date of Service: 03/21/22 Interval History: Still quite edematous. UOP inaccurate, though pt notes bumetanide is inducing more diuresis than the furosemide. LLE still quite red Review of Systems Review of Systems: Yes all other systems are reviewed and are negative Physical Exam Vital Signs: Vital Signs: Last Vital Signs Temp 97.7 F 03/21/22 11:51 Pulse 92 03/21/22 11:51 Resp 20 03/21/22 11:51 BP 119/67 03/21/22 11:51 Pulse Ox 93 03/21/22 11:51 O2 Del Method 03/21/22 11:51 O2 Flow Rate 6 03/20/22 11:51 BMI result Body Mass Index 52.7 Const: General: comfortable and no acute distress Resp: Effort & Inspection: normal respiratory effort Cardio: Rate: regular rate Extrem: Other: diffuse cellulitis, left leg from below the knee distally, with edema Objective Data Active Medications Acetaminophen (Acetaminophen 325 Mg Tablet) 650 mg PO Q6H PRN PRN Reason: Pain, Mild (Pain Scale 1-3) Last Admin: 03/21/22 08:34 Dose: 650 mg Documented By: IRENA Albuterol Sulfate (Albuterol Sulfate 90 Mcg 8 Gm Inhaler) 2 puff INHALE RQ4H PRN PRN Reason: shortness of breath Albuterol/Ipratropium (Albuterol/Iprat 2.5/0.5mg 3 Ml Ampul.Neb) 3 ml INHALE RQ4H PRN PRN Reason: shortness of breath/wheeze Bumetanide (Bumetanide 1 Mg/4 Ml Vial) 1 mg IVPUSH BID@0900,1700 [facility]; Protocol Last Admin: 03/21/22 08:20 Dose: 1 mg Documented By: IRENA Dextrose (Dextrose 50 % 25 Gm/50 Ml Syringe) 25 gm IVPUSH Q15M PRN; Protocol PRN Reason: per Hypoglycemia Standing Ord. Enoxaparin Sodium (Enoxaparin Sodium 40 Mg/0.4 Ml Syringe) 40 mg SUBCUT Q24H [facility] Last Admin: 03/20/22 17:06 Dose: 40 mg Documented By: UDAY Glucose (Glucose Gel 15 Gm Gel..Gram.) 15 gm PO Q15M PRN; Protocol PRN Reason: per Hypoglycemia Standing Ord. Clindamycin Phosphate (Cleocin) 600 mg in 50 mls @ 100 mls/hr IV Q8H [facility] Last Infusion: 03/21/22 09:07 Dose: 100 mls/hr Documented By: IRENA Vancomycin HCl 1,250 mg/ (Sodium Chloride) 250 mls @ 166.667 mls/hr IV Q8H [facility] Last Infusion: 03/21/22 11:02 Dose: 0 mls/hr Documented By: IRENA Insulin Human Lispro (Insulin Lispro 100 Unit/Ml 3 Ml Vial) 0 unit SUBCUT QIDACHS [facility]; Protocol Last Admin: 03/21/22 11:28 Dose: Not Given Documented By: DOBROB Non-Admin Reason: No Insulin Coverage Nicotine (Nicotine 14 Mg Patch.Td24) 14 mg TRANSDERMA DAILY [facility] Last Admin: 03/21/22 08:18 Dose: 14 mg Documented By: IRENA Nicotine Polacrilex (Nicotine Polacrilex 2 Mg Gum) 2 mg BUCCAL Q2H PRN PRN Reason: Nicotine Cravings Last Admin: 03/21/22 00:32 Dose: 2 mg Documented By: KALINA Ondansetron HCl (Ondansetron Hcl 4 Mg/2 Ml Vial) 4 mg IVPUSH Q8H PRN PRN Reason: Nausea and Vomiting Sodium Chloride (0.9 % Sodium Chloride Flush 3 Ml Syringe) 3 ml IVFLUSH QSHIFT [facility] Last Admin: 03/21/22 08:18 Dose: 3 ml Documented By: IRENA Labs CBC & Chem 7: 03/21/22 06:44 03/21/22 06:44 Labs: Laboratory Results - last 24 hr 03/20/22 03/20/22 03/20/22 15:03 15:30 19:38 MCV MCH MCHC RDW Plt Count MPV Absolute Nucleated RBC Nucleated RBC % (auto) Anion Gap Estim Creat Clear Calc Estimated GFR POC Glucose 132 H 166 H Random Glucose Calcium Magnesium C-Reactive Protein B-Natriuretic Peptide Vancomycin Trough 17.1 03/21/22 03/21/22 03/21/22 06:44 06:44 06:44 MCV 93.7 MCH 29.0 MCHC 30.9 L RDW 13.7 Plt Count 248 MPV 8.9 L Absolute Nucleated RBC 0.000 Nucleated RBC % (auto) 0.0 Anion Gap 13 Estim Creat Clear Calc 201.0 Estimated GFR > 60 POC Glucose Random Glucose 157 H Calcium 9.5 Magnesium 2.3 C-Reactive Protein 6.34 H B-Natriuretic Peptide 18 Vancomycin Trough 03/21/22 03/21/22 07:21 11:05 MCV MCH MCHC RDW Plt Count MPV Absolute Nucleated RBC Nucleated RBC % (auto) Anion Gap Estim Creat Clear Calc Estimated GFR POC Glucose 160 H 121 H Random Glucose Calcium Magnesium C-Reactive Protein B-Natriuretic Peptide Vancomycin Trough Assessment and Plan (1) Respiratory failure with hypoxia and hypercapnia: Status: Acute (2) Hypoventilation associated with obesity: Status: Acute (3) MALDONADO (obstructive sleep apnea): Status: Acute (4) Morbid obesity: Status: Acute (5) Cellulitis: Status: Acute Plan hospital d#5 31yo M with morbid obesity, intermittent asthma, likely MALDONADO presenting with 1d of rapidly progressive erythema, induration, and warmth of the RLE and found to be septic due to cellulitis/erysipelas # cellulitis/erysipelas - d#5 clindamycin + vancomycin, BCx negative, Surgery following and pt not thought to have necrotizing infection. ID appreciated # chronic hypoxic/hypercapneic respiratory failure - likely severe MALDONADO. Pulmonology consulted. overnight oximetry tonight to qualify for home CPAP. # acute R-sided HF bumetanide 1mg bid IV, continue diuresis. Cardiology following # new dx DM2, A1c 7.3 - correction-dose lispro, d/c on MTF # mild intermittent asthma - prn albuterol HFA # morbid obesity - consider outpt Bariatric evaluation # VTE ppx - LMWH In my clinical judgment, the patient requires continued hospitalization for the following reasons: IV ABX, diuresis Quality Stroke Does the patient have a stroke diagnosis?: No VTE Prior VTE?: No VTE Risk Level:: Medical - moderate - high VTE Device Contraindication: N/A - Device Ordered VTE Drug Contraindication: N/A - Med Ordered
--- NOTE | 2022-03-21 13:16 | P.PNCA_ITS ---
Subjective Subjective Date of Service: 03/21/22 Principal diagnosis: Cellulitis, AV block, presumed MALDONADO, Morbid obesity, Fluid overload Interval history: Patient says he is breathing better. No significant pauses overnight. Leg edema is improved. Leg redness in the left leg still remains. Complains of pain at that site. No orthopnea, PND. Wheezing has improved. Review of Systems Constitutional: Reports no additional constitutional complaints Cardiovascular: Reports no additional cardiovascular complaints Respiratory: Reports no additional respiratory complaints Gastrointestinal: Reports no additional gastrointestinal complaints Genitourinary: Reports no additional male genitourinary complaints Musculoskeletal: Reports no additional musculoskeletal complaints Skin/Breast: Reports system reviewed and no additional complaints, except as docu Reports system reviewed and no additional complaints, except as documented Physical Exam Vital Signs: Last Vital Signs Temp 97.7 F 03/21/22 11:51 Pulse 92 03/21/22 11:51 Resp 20 03/21/22 11:51 BP 119/67 03/21/22 11:51 Pulse Ox 93 03/21/22 11:51 O2 Del Method 03/21/22 11:51 O2 Flow Rate 6 03/20/22 11:51 BMI result Body Mass Index 52.7 Const Other: Morbidly obese General: cooperative, comfortable and no acute distress Orientation/consciousness: patient oriented x3 Neck Other: obese, unable to accurately assess for JVD Neck: Yes normal visual inspection Resp Effort & Inspection: normal respiratory effort Auscultation: clear to auscultation bilaterally, no crackles, no rales, no rhonchi and no wheezes Cardio Rate: regular rate Rhythm: regular rhythm Heart sounds: S1 normal heart sound present, S2 normal heart sound present, no gallops, no murmurs and no rubs GI Other: obese, round, semifirm, nontender Neuro General: patient oriented x3 Extrem Other: tight pitting edema in legs, to thighs, Redness left lower leg from knee to an kle General: No clubbing, No cyanosis and Yes edema Psych Appearance: grossly normal Mental Status: mental status grossly normal Objective Labs and Meds Result diagrams: 03/21/22 06:44 03/21/22 06:44 Lab results: Laboratory Results - last 24 hr 03/20/22 03/20/22 03/20/22 15:03 15:30 19:38 WBC RBC Hgb Hct MCV MCH MCHC RDW Plt Count MPV Absolute Nucleated RBC Nucleated RBC % (auto) Sodium Potassium Chloride Carbon Dioxide Anion Gap BUN Creatinine Estim Creat Clear Calc Estimated GFR POC Glucose 132 H 166 H Random Glucose Calcium Magnesium C-Reactive Protein B-Natriuretic Peptide Vancomycin Trough 17.1 03/21/22 03/21/22 03/21/22 06:44 06:44 06:44 WBC 8.1 RBC 4.73 Hgb 13.7 L Hct 44.3 MCV 93.7 MCH 29.0 MCHC 30.9 L RDW 13.7 Plt Count 248 MPV 8.9 L Absolute Nucleated RBC 0.000 Nucleated RBC % (auto) 0.0 Sodium 139 Potassium 4.6 Chloride 96 Carbon Dioxide 35 H Anion Gap 13 BUN 13 Creatinine 0.80 Estim Creat Clear Calc 201.0 Estimated GFR > 60 POC Glucose Random Glucose 157 H Calcium 9.5 Magnesium 2.3 C-Reactive Protein 6.34 H B-Natriuretic Peptide 18 Vancomycin Trough 03/21/22 03/21/22 07:21 11:05 WBC RBC Hgb Hct MCV MCH MCHC RDW Plt Count MPV Absolute Nucleated RBC Nucleated RBC % (auto) Sodium Potassium Chloride Carbon Dioxide Anion Gap BUN Creatinine Estim Creat Clear Calc Estimated GFR POC Glucose 160 H 121 H Random Glucose Calcium Magnesium C-Reactive Protein B-Natriuretic Peptide Vancomycin Trough Progress Note: A&P Assessment and plan (1) Respiratory failure with hypoxia and hypercapnia: Status: Acute Assessment and Plan: Right heart failure syndrome. Clinically still has bilateral lower extremity male, however this appears to be more related to now peripheral venous hypertension. Switch to Bumex 1 mg. B.i.d.. Right heart failure syndrome most likely related to untreated sleep apnea as well as obesity hypoventilation syndrome. Heart failure management was discussed in details with the patient. He understands and agrees. Workup for sleep apnea as soon as possible as outpa tient. Continue CPAP therapy, empiric at this point time. For the leg edema would consider compression venous stocking and leg elevation. (2) Sinus pause: Status: Acute Assessment and Plan: Sinus pause as well as AV jesus manuel block related to sleep apnea. Continue empiric CPAP therapy. No pacemaker required. Will sign of the case and will follow as outpatient. Time Spent With Patient Time: Total time spent is greater than 50% in coordination of care (as documented) at patient's floor/unit and/or counseling patient: Progress Note: Quality Stroke Does the patient have a stroke diagnosis?: No Procedures Date of Service Date of Service: 03/21/22
[2022-03-21 15:55] LABS: Vancomycin Random 14.6 mcg/mL (15-20)
[2022-03-21 16:04] LABS: Glucose, Whole Blood 187 mg/dL (60-115)
--- NOTE | 2022-03-21 16:17 | HE.PHANOTE ---
Vancomycin Dosing Addendum Vancomycin trough 14.6 today. predicted auc of 428. Continue with current regimen. Next trough 03/22/22 @1500
--- NOTE | 2022-03-21 16:25 | PC.NURSE ---
per cardiology recomended lissette stocking therapy. pt's left leg circumference was 27inches. lissette stocking size unavailable.
[2022-03-21] MEDS: Enoxaparin Sodium 40 MG/0.4 ML SYRINGE SUBCUT (16:56)
[2022-03-21 19:47] LABS: Glucose, Whole Blood 134 mg/dL (60-115)
[2022-03-22] VITALS (7 sets, daily range): BP systolic 113–140; BP diastolic 57–85; PULSE 86–100; RESP 18–20; TEMP 36.6–37; O2SAT 90–98
[2022-03-22] MEDS: Clindamycin Phosphate/D5W 600 MG/50 ML PIGGYBACK 100 MG IV ×3 (00:12→17:14)
[2022-03-22] MEDS: vancomycin HCL 1,250 MG in 0.9 % Sodium Chloride 250 ML 166.67 MG IV ×3 (00:12→17:14)
[2022-03-22] MEDS: Acetaminophen 325 MG TABLET 650 MG PO ×2 (02:56→17:13)
[2022-03-22 05:09] LABS: ABG Base Excess 8.6 mmol/L; ABG HCO3 35 mmol/L (22-26); ABG pCO2 58 mmHg (32-45); ABG pH 7.39 (7.35-7.45); ABG pO2 69 mmHg (83-108)
[2022-03-22 05:11] LABS: ABG Refer to POC result
[2022-03-22 07:26] LABS: Glucose, Whole Blood 152 mg/dL (60-115)
[2022-03-22 07:31] LABS: Creatinine Clr Calc Pharmacy 198.5; Estimated Glomerular Filt Rate > 60
[2022-03-22] MEDS: 0.9 % Sodium Chloride Flush 3 ML SYRINGE IVFLUSH ×4 (08:00→21:16)
[2022-03-22] MEDS: Nicotine 14 MG PATCH.TD24 TRANSDERMA (08:00)
[2022-03-22] MEDS: Insulin Lispro 100 UNIT/ML 3 ML VIAL SUBCUT ×3 (08:01→21:16)
[2022-03-22] MEDS: Bumetanide 1 MG/4 ML VIAL IVPUSH ×2 (08:01→17:13)
[2022-03-22 11:33] LABS: Glucose, Whole Blood 115 mg/dL (60-115)
--- NOTE | 2022-03-22 12:52 | HO.PM.IMPN ---
Subjective Subjective Date of Service: 03/22/22 Interval History: cc: leg pain interval history:improved but still wtih pain Cardiovascular Cardiovascular: Reports no additional cardiovascular complaints Respiratory Respiratory: Reports no additional respiratory complaints Physical Exam Vital Signs: Vital Signs: Last Vital Signs Temp 98.5 F 03/22/22 11:48 Pulse 95 03/22/22 11:48 Resp 20 03/22/22 11:48 BP 125/85 03/22/22 11:48 Pulse Ox 98 03/22/22 11:48 O2 Del Method 03/22/22 11:48 O2 Flow Rate 6 03/20/22 11:51 BMI result Body Mass Index 52.7 Const: General: comfortable and no acute distress Resp: Effort & Inspection: normal respiratory effort Cardio: Rate: regular rate Extrem: Other: diffuse cellulitis, left leg from below the knee distally, with edema Objective Data Active Medications Acetaminophen (Acetaminophen 325 Mg Tablet) 650 mg PO Q6H PRN PRN Reason: Pain, Mild (Pain Scale 1-3) Last Admin: 03/22/22 02:56 Dose: 650 mg Documented By: ABDI Albuterol Sulfate (Albuterol Sulfate 90 Mcg 8 Gm Inhaler) 2 puff INHALE RQ4H PRN PRN Reason: shortness of breath Albuterol/Ipratropium (Albuterol/Iprat 2.5/0.5mg 3 Ml Ampul.Neb) 3 ml INHALE RQ4H PRN PRN Reason: shortness of breath/wheeze Bumetanide (Bumetanide 1 Mg/4 Ml Vial) 1 mg IVPUSH BID@0900,1700 [facility]; Protocol Last Admin: 03/22/22 08:01 Dose: 1 mg Documented By: IRENA Dextrose (Dextrose 50 % 25 Gm/50 Ml Syringe) 25 gm IVPUSH Q15M PRN; Protocol PRN Reason: per Hypoglycemia Standing Ord. Enoxaparin Sodium (Enoxaparin Sodium 40 Mg/0.4 Ml Syringe) 40 mg SUBCUT Q24H [facility] Last Admin: 03/21/22 16:56 Dose: 40 mg Documented By: IRENA Glucose (Glucose Gel 15 Gm Gel..Gram.) 15 gm PO Q15M PRN; Protocol PRN Reason: per Hypoglycemia Standing Ord. Clindamycin Phosphate (Cleocin) 600 mg in 50 mls @ 100 mls/hr IV Q8H [facility] Last Infusion: 03/22/22 08:41 Dose: 100 mls/hr Documented By: IRENA Vancomycin HCl 1,250 mg/ (Sodium Chloride) 250 mls @ 166.667 mls/hr IV Q8H [facility] Last Infusion: 03/22/22 11:50 Dose: 0 mls/hr Documented By: IRENA Insulin Human Lispro (Insulin Lispro 100 Unit/Ml 3 Ml Vial) 0 unit SUBCUT QIDACHS [facility]; Protocol Last Admin: 03/22/22 11:54 Dose: Not Given Documented By: IRENA Non-Admin Reason: No Insulin Coverage Nicotine (Nicotine 14 Mg Patch.Td24) 14 mg TRANSDERMA DAILY [facility] Last Admin: 03/22/22 08:00 Dose: 14 mg Documented By: IRENA Nicotine Polacrilex (Nicotine Polacrilex 2 Mg Gum) 2 mg BUCCAL Q2H PRN PRN Reason: Nicotine Cravings Last Admin: 03/21/22 00:32 Dose: 2 mg Documented By: AKLINA Ondansetron HCl (Ondansetron Hcl 4 Mg/2 Ml Vial) 4 mg IVPUSH Q8H PRN PRN Reason: Nausea and Vomiting Sodium Chloride (0.9 % Sodium Chloride Flush 3 Ml Syringe) [facility] Last Admin: 03/22/22 08:00 Dose: 3 ml Documented By: IRENA Labs CBC & Chem 7: 03/21/22 06:44 03/22/22 06:53 Labs: Laboratory Results - last 24 hr 03/21/22 03/21/22 03/21/22 15:15 15:58 19:42 O2 Saturation ABG pH at Pt Temp ABG pCO2 at Pt Temp ABG pO2 at Pt Temp ABG HCO3 ABG Base Excess (Actual) Estim Creat Clear Calc Estimated GFR POC Glucose 187 H 134 H Random Vancomycin 14.6 L 03/22/22 03/22/22 03/22/22 05:04 06:53 07:08 O2 Saturation 92.0 ABG pH at Pt Temp 7.39 ABG pCO2 at Pt Temp 58 H ABG pO2 at Pt Temp 69 L ABG HCO3 35 H ABG Base Excess (Actual) 8.6 Estim Creat Clear Calc 198.5 Estimated GFR > 60 POC Glucose 152 H Random Vancomycin 03/22/22 11:29 O2 Saturation ABG pH at Pt Temp ABG pCO2 at Pt Temp ABG pO2 at Pt Temp ABG HCO3 ABG Base Excess (Actual) Estim Creat Clear Calc Estimated GFR POC Glucose 115 Random Vancomycin Assessment and Plan (1) Respiratory failure with hypoxia and hypercapnia: Status: Acute (2) Hypoventilation associated with obesity: Status: Acute (3) MALDONADO (obstructive sleep apnea): Status: Acute (4) Morbid obesity: Status: Acute (5) Cellulitis: Status: Acute Plan hospital d#6 31yo M with morbid obesity, intermittent asthma, likely MALDONADO presenting with 1d of rapidly progressive erythema, induration, and warmth of the RLE and found to be septic due to cellulitis/erysipelas # cellulitis/erysipelas - d#6 clindamycin + vancomycin, BCx negative, Surgery following and pt not thought to have necrotizing infection. ID appreciated # chronic hypoxic/hypercapneic respiratory failure - likely severe MALDONADO. Pulmonology consulted. overnight oximetry completed, follow up pulm # acute R-sided HF bumetanide 1mg bid IV, continue diuresis. Cardiology following # new dx DM2, A1c 7.3 - correction-dose lispro, d/c on MTF # mild intermittent asthma - prn albuterol HFA # morbid obesity - consider outpt Bariatric evaluation # VTE ppx - LMWH In my clinical judgment, the patient requires continued hospitalization for the following reasons: IV ABX, diuresis Quality Stroke Does the patient have a stroke diagnosis?: No VTE Prior VTE?: No VTE Risk Level:: Medical - moderate - high VTE Device Contraindication: N/A - Device Ordered VTE Drug Contraindication: N/A - Med Ordered
[2022-03-22 15:41] LABS: Vancomycin Trough 14.4 mcg/mL (10.0-20.0)
[2022-03-22 16:07] LABS: Glucose, Whole Blood 162 mg/dL (60-115)
--- NOTE | 2022-03-22 16:07 | HE.PHANOTE ---
Vancomycin Dosing Addendum Vancomycin trough the last few days have been 14.4 and 14.6. Continue with current regimen. Insight is predicting a 396 AUC. Pt clinically better ( no fever, WBC WNL, cellulitis improved). next trough 03/23/22 @1500 and may need to increase dose if trough decreases.
[2022-03-22] MEDS: Enoxaparin Sodium 40 MG/0.4 ML SYRINGE SUBCUT (17:13)
[2022-03-22 20:44] LABS: Glucose, Whole Blood 168 mg/dL (60-115)
[2022-03-23] MEDS: Clindamycin Phosphate/D5W 600 MG/50 ML PIGGYBACK 100 MG IV ×2 (00:44→08:41)
[2022-03-23] MEDS: vancomycin HCL 1,250 MG in 0.9 % Sodium Chloride 250 ML 166.67 MG IV (01:20)
[2022-03-23 03:52] VITALS: BP 135/68; PULSE 79; RESP 22; TEMP 36.7; O2SAT 99
[2022-03-23 07:29] LABS: Glucose, Whole Blood 147 mg/dL (60-115)
[2022-03-23 07:31] LABS: Hematocrit 45.2 % (42.0-52.0); Mean Corpuscular Volume 93.6 fL (80.0-98.0); Mean Platelet Volume 9.1 fL (9.4-12.4); Platelet Count 265 X10*3/uL (160-400); Red Blood Count 4.83 X10*6/uL (4.60-5.80); Red Cell Distribution Width 13.5 % (11.0-16.0); White Blood Count 6.9 X10*3/uL (4.8-10.8)
[2022-03-23 07:38] VITALS: BP 119/65; PULSE 81; RESP 20; TEMP 36.7; O2SAT 97
[2022-03-23 07:42] LABS: Anion Gap 13 (12-20); Blood Urea Nitrogen 14 mg/dL (9-16); Calcium 9.2 mg/dL (8.4-10.2); Carbon Dioxide 35 mmol/L (22-29); Chloride 97 mmol/L (96-108); Creatinine Clr Calc Pharmacy 208.8; Estimated Glomerular Filt Rate > 60; Glucose Fasting 147 mg/dL (60-99); Magnesium 2.1 mg/dL (1.6-2.6); Potassium 4.8 mmol/L (3.3-5.1); Sodium 140 mmol/L (135-145)
[2022-03-23] MEDS: Bumetanide 1 MG/4 ML VIAL IVPUSH (08:37)
[2022-03-23] MEDS: Acetaminophen 325 MG TABLET 650 MG PO (08:39)
[2022-03-23] MEDS: Nicotine 14 MG PATCH.TD24 TRANSDERMA (08:40)
[2022-03-23] MEDS: vancomycin HCL 1,250 MG in 0.9 % Sodium Chloride 250 ML 167 MG IV (09:22)
[2022-03-23 11:21] VITALS: BP 133/71; PULSE 87; RESP 20; TEMP 36.7; O2SAT 96
--- NOTE | 2022-03-23 11:32 | PM.DS ---
DS: Providers Provider Date of Service: 03/23/22 Date of admission: 03/17/22 15:47 Primary care physician: Unknown Physician Consults: 03/17/22 16:52 Consult to General Surgery Routine Consulting Provider: Noel Flores Reason for consultation: Rapidly progressive cellulitis. Monitor for necrotizing soft tissue infect 03/18/22 02:51 Consult to Cardiology Routine Consulting Provider: Rajendra Vega Reason for consultation: sinus pause 03/18/22 07:51 Consult to Pulmonology Routine Consulting Provider: [facility] Reason for consultation: undiagnosed MALDONADO, elevated pCO2 03/19/22 12:13 Consult to Infectious Diseases Routine Consulting Provider: Melanie Casiano Reason for consultation: severe cellulitis RLE DS: Diagnosis Discharge Diagnosis (1) Cellulitis: Status: Acute DS: Summary Hospital Course Hospital Course: from initial hpi: 31yo M with PMHx of asthma and morbid obesity but no other diagnosed chronic medical conditions, though he has not seen a primary care doctor in years.? He has previously been referred for evaluation for MALDONADO but never had a PSG.? He presents 1 day after developing rapidly spreading redness, discoloration, swelling, and pain of his left leg involving the entire almazan and calf. ? He had a fever to 101 and chills and decided to come in to the ED.? Five days ago, he tripped walking down some stairs when his right knee gave out.? No purulent drainage from the leg.? No nausea or vomiting. In the ED, he was noted to septic with leukocytosis and tachycardia.? Lactic acid was 1.? Random blood glucose 234.? He was given 1 dose of cefazolin. hospital course: Patient was admitted for cellulitis of the left lower extremity. He was treated with clindamycin vancomycin, was seen by surgery felt this was not necrotizing infection. On discharge he will do 1 more week of p.o. clindamycin. He was treated for acute right-sided heart failure with IV Bumex, he diuresed well and will be discharged on Lasix 40 mg daily. He was noted to have nocturnal hypoxia will require home O2, he likely has severe MALDONADO that is untreated, he should follow up outpatient for sleep study. Patient was noted to have a new diagnosis of diabetes with an A1c of 7.3. He was treated with insulin hospital may be discharged on metformin. For his morbid obesity weight loss is encouraged and he should consider follow-up with bariatrics. Patient is feeling much better will be discharged home. Time Spent with Patient Time attestation: Total time spent providing and/or coordinating discharge services: Discharge coordination time: Greater than 30 minutes Quality: Safe Use of Opioids Does Pt have an Active Cancer Diagnosis on the Problem List?: No Quality: Stroke Does the patient have a stroke diagnosis?: No Physical Exam Vital Signs: Vital Signs: Last Vital Signs Temp 98.0 F 03/23/22 11:21 Pulse 87 03/23/22 11:21 Resp 20 03/23/22 11:21 BP 133/71 03/23/22 11:21 Pulse Ox 96 03/23/22 11:21 O2 Del Method 03/23/22 11:21 O2 Flow Rate 6 03/20/22 11:51 BMI result Body Mass Index 52.7 General: AO X 3, no acute distress Resp: CTA bilateral, no accessory muscles used CVS: S1,S2,RRR GI: soft, non tender, non distended Neuro: motor grossly intact, alert Psych: appropriate affect, appropriate insight lle imroved erythema and edema DS: Data Data Completed and Pending Labs on day of discharge: Laboratory Results - last 24 hr 03/22/22 03/22/22 03/22/22 11:29 14:59 15:58 WBC RBC Hgb Hct MCV MCH MCHC RDW Plt Count MPV Absolute Nucleated RBC Nucleated RBC % (auto) Sodium Potassium Chloride Carbon Dioxide Anion Gap BUN Creatinine Estim Creat Clear Calc Estimated GFR POC Glucose 115 162 H Fasting Glucose Calcium Magnesium Vancomycin Trough 14.4 03/22/22 03/23/22 03/23/22 20:41 05:41 05:41 WBC 6.9 RBC 4.83 Hgb 14.0 Hct 45.2 MCV 93.6 MCH 29.0 MCHC 31.0 RDW 13.5 Plt Count 265 MPV 9.1 L Absolute Nucleated RBC 0.000 Nucleated RBC % (auto) 0.0 Sodium 140 Potassium 4.8 Chloride 97 Carbon Dioxide 35 H Anion Gap 13 BUN 14 Creatinine 0.77 Estim Creat Clear Calc 208.8 Estimated GFR > 60 POC Glucose 168 H Fasting Glucose 147 H Calcium 9.2 Magnesium 2.1 Vancomycin Trough 03/23/22 07:20 WBC RBC Hgb Hct MCV MCH MCHC RDW Plt Count MPV Absolute Nucleated RBC Nucleated RBC % (auto) Sodium Potassium Chloride Carbon Dioxide Anion Gap BUN Creatinine Estim Creat Clear Calc Estimated GFR POC Glucose 147 H Fasting Glucose Calcium Magnesium Vancomycin Trough Discharge Plan Discharge Patient Disposition: Home, Self-Care Discharge Diagnosis: cellulitis, dm, chf Referrals: Priti Stephens MD [Physician] - 1 Week Physician,Melvina J [Primary Care Provider] - 1 Week Discharge Medications: New clindamycin HCl 300 mg capsule 300 mg PO Q8H Qty: 21 0RF furosemide [Lasix] 40 mg tablet 40 mg PO DAILY Qty: 30 0RF metformin 500 mg tablet 500 mg PO BIDWMEAL Qty: 60 0RF Discharge Orders: Discharge Order (Routine); Ordered 03/23/22 Ordered By: Audie Haynes Diet: diabetic diet Activity on Discharge: avoid wB on LLE as much as possible Stand Alone Forms: Patient Portal Discharge page Care Plan Goals: recovery Health Concerns: new DM, chf, cellulitis Plan of Treatment: metformin, lasix, clinda, follow up pulm, pcp, weight loss, o2 at night, will need sleep study Assessment: see above
[2022-03-23 11:47] LABS: Glucose, Whole Blood 120 mg/dL (60-115)
--- NOTE | 2022-03-23 11:47 | MHC.CM.PN ---
Patient has been medically cleared for dc to home today, self care.
[2022-03-23 11:56] VITALS: PULSE 106; PULSE 86; O2SAT 92; O2SAT 98
== END 2022-03-23 14:30 | disposition home or self-care (01) | DRG 720 ==
LOC: HO.ED 15:11 → HO.EDOVER 15:55 → HO.IMC 17:44
PROVIDERS: Hospitalist; Physician Assistant; Admitting Provider Family Medicine; Emergency Provider Student in an Organized Health Care Education/Training Program; Visit Provider Internal Medicine
DX: A41.9 Sepsis, unspecified organism (principal); J96.21 Acute and chronic respiratory failure with hypoxia; I49.5 Sick sinus syndrome; L03.116 Cellulitis of left lower limb; E66.2 Morbid (severe) obesity with alveolar hypoventilation; E11.65 Type 2 diabetes mellitus with hyperglycemia; A46 Erysipelas; J96.22 Acute and chronic respiratory failure with hypercapnia; J45.20 Mild intermittent asthma, uncomplicated; I50.811 Acute right heart failure; I44.30 Unspecified atrioventricular block; Z20.822 Contact with and (suspected) exposure to COVID-19; Z68.43 Body mass index [BMI] 50.0-59.9, adult; Z88.5 Allergy status to narcotic agent; Z88.6 Allergy status to analgesic agent; Z79.84 Long term (current) use of oral hypoglycemic drugs; Z79.899 Other long term (current) drug therapy
CPT/HCPCS: 36415; 36600; 71045; 80048; 80202; 82565; 82803; 82947; 83036; 83605; 83735; 83880; 85027; 86140; 87040; 87635; 93005; 93306; 93971; 94660; 94762; 96365; 99285; J0690; J1650; J1885; J1940; J3370; Q9957